=== PATIENT | male | born 1935 | race Caucasian/White ===

== ENCOUNTER 2018-08-26 17:26 | Inpatient (IN) ==
[2018-08-26] MEDS ORDERED: ACETAMINOPHEN 325 MG TAB PO PRN (20:44)
[2018-08-26] MEDS ORDERED: NITROGLYCERIN SL 0.4 MG/TAB TAB SL PRN (20:44)
[2018-08-26] MEDS ORDERED: ONDANSETRON INJ 2 MG/ML 2 ML VIAL IV PRN (20:44)
[2018-08-26] MEDS ORDERED: DOCUSATE SODIUM/SENNA 50/8.6MG TAB PO PRN (20:46)
--- NOTE | 2018-08-26 21:13 | XRay Report ---
XR chest 1V portable CLINICAL HISTORY: Preoperative evaluation. COMPARISON STUDY: No previous studies for comparison. FINDINGS: Lung volumes are normal. There is no pneumothorax or pleural effusion. There is no consolid ation or evidence for pulmonary edema. Cardiac size is normal. Mediastinal contours are normal. Incid ental note is made of degenerative changes of both shoulders. IMPRESSION: No acute cardiopulmonary findings. Electronically signed by: Naveed Buitrago M.D. 08/26/2018 9:11 PM
[2018-08-26] MEDS: AMIODARONE 200 MG TAB PO SCH (22:01)
[2018-08-26] MEDS: ATORVASTATIN 10 MG TAB PO SCH (22:01)
[2018-08-26] MEDS: CALCIUM CARBONATE 500 MG CHEWABLE TAB PO SCH (22:01)
[2018-08-26] MEDS: FUROSEMIDE 40 MG TAB PO SCH (22:01)
[2018-08-26] MEDS: POLYETHYLENE (MIRALAX) 17 GM PACK PO SCH (22:02)
[2018-08-26] MEDS: METOPROLOL SUCC 25MG EXT REL TAB PO SCH (22:02)
--- NOTE | 2018-08-26 23:35 | History and Physical Report ---
DATE OF ADMISSION: 08/26/2018 CHIEF COMPLAINT: Nonsustained V-tach, plan for ICD. HISTORY OF PRESENT ILLNESS: This is an 82-year-old male with past medical history significant for primary papillary thyroid cancer, status post thyroidectomy, postsurgical hypothyroidism, hyperlipidemia, chronic diastolic heart failure, systolic congestive heart failure, hypertension, chronic kidney disease stage III, malignant neoplasm of colon, status post laparoscopic colectomy with anastomosis, Hx of V tach post op in 2013, Hx of PAF not on anticoagulation,admitted recently to the [facility] with lightheadedness and arrhythmia and found to be in SVTs, heart rate greater than 170, narrow complex, with reentrant tachycardia and then wide complex tachycardia. In the hospital, she had an episode of lightheadedness. Amiodarone drip was started. At that time, he was also placed on Toprol-XL and diuretics because his EF was down to 30%. Tachycardia improved. and the patient was planned for ICD and was transferred here for ICD placement. Patient also recently had a gout flare, and along with gout flare, he developed rash for which he was treated with prednisone. Currently rash has improved. Patient is resting comfortably. Denies any headaches, no blurred vision, no earache, no runny nose, no sore throat or difficulty swallowing. No chest pain, no shortness of breath, no palpitations, no cough, no nausea, no abdominal pain. Normal bowel and bladder movements. No blood in the stools or black stools. ALLERGIES: FELODIPINE. PAST MEDICAL HISTORY: As mentioned above. PAST SURGICAL HISTORY: Colonoscopy, left heart catheterization, upper endoscopy, inguinal hernia repair, umbilical hernia repair, rhinoplasty, laparoscopic colectomy partial with anastomosis, partial nephrectomy, complete thyroidectomy, total hip replacement and prosthesis. MEDICATIONS: Currently patient is on amiodarone 200 mg p.o. t.i.d., Flonase 2 sprays into nostrils daily, Lasix 40 mg p.o. b.i.d., Toprol-XL 25 mg p.o. b.i.d., Senokot-S 2 tablets daily p.r.n., allopurinol 100 mg p.o. daily, calcium carbonate 750 mg q.i.d., Zantac 150 mg p.o. daily, Lipitor 10 mg p.o. daily, MiraLax 17 g p.o. daily, Synthroid 175 mcg p.o. daily, Flomax 0.4 mg p.o. daily, Tylenol 650 mg p.o. q.4 h. p.r.n., vitamin D50 of 1000 units capsule weekly. FAMILY HISTORY: Significant for mother who had CHF, brother has prostate cancer. Sister has Parkinson's, colon cancer, valvular heart disease. SOCIAL HISTORY: . No smoking, no alcohol, no drug use. REVIEW OF SYSTEMS: As per HPI, rest of the review of systems negative. PHYSICAL EXAMINATION: GENERAL: Patient is of moderate build, not in acute distress. VITAL SIGNS: Temperature 36.8, pulse 69, respiratory rate 16, blood pressure 176/97, oxygen saturation 96% on room air. HEENT: No pallor, no icterus. Pupils equal, round, and reactive to light. NECK: No JVD, no neck masses, no carotid bruits. CARDIOVASCULAR SYSTEM: S1 and S2 heard, regular rate and rhythm, no murmur, no gallop. RESPIRATORY SYSTEM: Clear to auscultation bilaterally. No wheezing, no crackles. GASTROINTESTINAL: Abdomen is soft, bowel sounds present, nontender, no distention. CENTRAL NERVOUS SYSTEM: Cranial nerves II through XII grossly intact. Nonfocal. EXTREMITIES: No edema, no erythema. LABORATORY DATA: Labs done at [place] show WBC of 8.8, hemoglobin 13.3, hematocrit 39.5, platelets 208. BUN 33, creatinine 2.1, sodium 140, potassium 3.9, chloride 95, bicarbonate 31, glucose 101, calcium 9.2. Alkaline phosphatase is 102, ALT 27, AST 27, bilirubin 0.6, total bilirubin less than 0.2. ASSESSMENT AND PLAN: This is an 82-year-old male who was transferred from [facility] for ICD placement. 1. Ventricular tachycardia, nonsustained supraventricular tachycardia. Was started on amiodarone. Currently seems to be under control. Patient was symptomatic with the lightheadedness. Plan is for ICD placement in the a.m. by cardiology EP services, consult cardiology EP. Will keep him n.p.o. after midnight. Continue his amiodarone 200 mg t.i.d. and Toprol-XL 25 mg p.o. b.i.d. and monitor on the tele floor. 2. Chronic systolic congestive heart failure, now ejection fraction of 30%, on Lasix 40 mg b.i.d., which we will continue. Monitor for volume overload. Continue Toprol-XL. 3. Questionable paroxysmal atrial fibrillation, not on anticoagulation. Cardiology to plan to start on anticoagulation if a fib is confirmed. 4. Hypertension. Continue his Toprol-XL and diuretics and monitor his blood pressure. 5. History of papillary thyroid cancer, status post total thyroidectomy, postop hypothyroidism, on levothyroxine. Continue his current home dose. 6. Gastroesophageal reflux disease. Continue Pepcid. 7. Hyperlipidemia. Continue statin. 8. History of colon cancer, status post colectomy. 9. Chronic kidney disease stage III. Creatinine seems to be around 2. Will follow the labs. 10. Deep venous thrombosis prophylaxis. Will place on sequential compression devices. 11. Disposition: Close monitor in tele floor. PT/OT prior to discharge. rehab services aide to help with discharge planning. Level 1 full code. MTDD
[2018-08-27 05:43] LABS: Basophils # (auto) 0.02 K/uL (0-0.2); Basophils % (auto) 0.3 %; Eosinophils # (auto) 0.57 K/uL (0-0.5); Eosinophils % (auto) 8.7 %; Hematocrit (blood only) 36.9 % (42-52); Immature Granulocytes % (auto) 1.5 %; Lymphocytes # (auto) 0.83 K/uL (1.2-3.4); Lymphocytes % (auto) 12.7 %; Mean Corpuscular Hgb Conc 32.5 g/dL (32-36); Mean Corpuscular Volume 94.6 fL (80-100); Mean Platelet Volume 9.9 fL (7.4-10.4); Monocytes % (auto) 10.7 %; Neutrophils % (auto) 66.1 %; Platelet Count 176 K/uL (130-400); RDW Coefficient of Variation 14.3 % (11.5-14.5); RDW Standard Deviation 48.9 fL (36.4-46.3); White Blood Count 6.52 K/uL (4.8-10.8)
[2018-08-27] MEDS ORDERED: CEFAZOLIN 2000MG 2,000 MG/15 ML SYR IV SCH (06:00)
[2018-08-27 06:04] LABS: BUN Creatinine Ratio 15.8 (10-20); Calcium 8.4 mg/dl (8.5-10.1); Creatinine Clr Calc Pharmacy 35.9 ml/min; Est GFR (African American) 37.7; Est GFR (Non-African American) 32.6; Magnesium 2.3 mg/dl (1.8-2.4); Potassium 3.2 mmol/L (3.5-5.1)
[2018-08-27] MEDS: LEVOTHYROXINE SODIUM 175 MCG TABLET PO SCH (06:04)
[2018-08-27] MEDS ORDERED: POTASSIUM CHLORIDE 20 MEQ TABCR PO STA (06:54)
[2018-08-27] MEDS ORDERED: POTASSIUM CHLORIDE 20 MEQ TABCR PO ONE (07:15)
[2018-08-27] MEDS: FAMOTIDINE 20 MG TAB PO SCH (08:43)
[2018-08-27] MEDS: FLUTICASONE PROPIONATE NA SPR 16 GM BTL SCH (08:43)
[2018-08-27] MEDS: ASPIRIN 81 MG ECTAB PO SCH (08:43)
[2018-08-27] MEDS: FUROSEMIDE 40 MG TAB PO SCH ×2 (08:43→17:37)
[2018-08-27] MEDS: TAMSULOSIN HCL 0.4 MG CAP PO SCH (08:43)
[2018-08-27] MEDS: CALCIUM CARBONATE 500 MG CHEWABLE TAB PO SCH ×2 (08:44→20:29)
[2018-08-27] MEDS: AMIODARONE 200 MG TAB PO SCH ×3 (08:45→20:28)
[2018-08-27] MEDS: METOPROLOL SUCC 25MG EXT REL TAB PO SCH ×2 (08:46→20:28)
--- NOTE | 2018-08-27 09:00 | Pre Anesthesia Assessment ---
Date of Service August 27, 2018 Pre Sedation Assessment Vital Signs Temp Pulse Resp BP BP Pulse Ox 08/27/18 07:45 37 C 63 16 132/74 93 08/27/18 02:38 37.0 C 70 18 152/84 H 95 08/26/18 23:18 36.5 C 70 19 120/59 L 93 08/26/18 20:04 36.8 C 69 16 176/97 H 96 Cardiovascular RRR, no murmur, no edema + bradycardic Respiratory normal respiratory effort, lungs clear to auscultation Pre-Sedation Airway Assessment Smoking Status: Never smoker Hx Sleep Apnea: No Hx Difficult Intubation: No Short, Thick Neck: No Thyromental Distance: < 3.5 Finger Breadths Oral Cavity: + WNL Mallampati Class: II ASA: ASA3 Procedure Planning Contraindications for Sedation: none Current Medications Reviewed: Yes Notes The planned sedation has been discussed with the patient. Informed Consent was obtained. I have identified the patient, determined the appropriateness of sedation and have assessed the patient immediately prior to the procedure. All medicine(s) and interventions are by my order.
--- NOTE | 2018-08-27 09:00 | History & Physical Bridge Note ---
Date of Service August 27, 2018 History & Physical Bridge Note I have examined the patient, reviewed the History & Physical and in the interval since the performance of the History & Physical I have noted the following changes of clinical significance: no changes noted
[2018-08-27] MEDS ORDERED: BUPIVACAINE 0.25% 30 ML VIAL ONE (09:15)
[2018-08-27] MEDS ORDERED: LIDOCAINE HCL 1% 20 ML VIAL ONE (09:15)
[2018-08-27] MEDS ORDERED: BACITRACIN INJ 50,000 UNIT VIAL ONE (09:15)
[2018-08-27] MEDS ORDERED: CEFAZOLIN 250 MG/ML 1 GM VIAL ONE (09:35)
[2018-08-27] MEDS ORDERED: MIDAZOLAM HCL 5 MG/ML 1 ML VIAL ONE (09:35)
[2018-08-27] MEDS ORDERED: fentaNYL citrate 100 MCG/2 ML VIAL ONE (09:35)
[2018-08-27] MEDS ORDERED: WATER, STERILE FOR INJ 10 ML VIAL ONE (09:35)
--- NOTE | 2018-08-27 09:56 | Hospitalist Progress Note ---
Date of Service August 27, 2018 Assessment & Plan (1) Non-sustained ventricular tachycardia: This is a 82yo M with a PMH of non-sustained ventricular tachycardia, systolic heart failure 2/2 non-ischemic cardiomyopathy, HTN, HLD, CKD III and other medical problems listed below who was transferrred from [facility] for ICD placement by Dr. Blas. -Underwent ICD dual-chamber device placement today by Dr. Blas -Continue PO amiodarone -Monitor on telemetry - was in sinus rhythm with PVCs overnight (2) Acute systolic heart failure: (3) Non-ischemic cardiomyopathy: EF of 30% on 08/22/17 echo, assumed to be non-ischemic CM due to normal cardiac cath in 2017 -Appears euvolemic on exam -Continue Toprol, Lasix (4) HTN (hypertension): Normotensive. Continue Toprol, Lasix (5) CKD (chronic kidney disease), stage III: Cr of 1.9, GFR of 32.6 today, at baseline (6) HLD (hyperlipidemia): Continue statin (7) Acquired hypothyroidism: H/o papillary thyroid carcinoma s/p thyroidectomy -Continue levothyroxine DVT Ppx: SCDs Code status: FULL PCP: Mariella Dispo: Admitted to telemetry. Plan to return home once medically stable. Patient seen in collaboration with Dr. Renteria. Please see addendum. Supervising Physician Co-Signing Physician Notes Admitted for ICD placement which was performed earlier today by Dr. Blas. Doing well after the procedure. Coughing a bit- has chronic cough and recent cold symptoms. EXAM General- no distress Neck- + JVD Lungs- few rhonchi Heart- RRR, no gallop appreciated Thorax- ICD site without hematoma Abd- + BS, soft, nontender Extr- no edema A/P: cardiomyopathy, ventricular tachycardia s/p ICD other problems as outlined by JEANINE Baca. Subjective Patient seen and examined. Feeling well today. Denies dizziness, chest pain, palpitations, SOB or LE edema. +Dry cough, persistent, worse when lying down. NPO overnight for ICD placement today by Dr. Blas. Telemetry reviewed with sinus rhythm with PVCs with HR is 60s overnight. Physical Exam 2 Vital Signs (Past 24 Hours): Last Vital Signs Temp 37 C 08/27/18 07:45 Pulse 63 08/27/18 07:45 Resp 16 08/27/18 07:45 BP 132/74 08/27/18 07:45 Pulse Ox 93 08/27/18 07:45 Physical Exam: General Appearance: WD/WN, no apparent distress, resting comfortably, family at bedside Head: normocephalic, atraumatic Eyes: normal inspection, PERRL, EOMI ENT: hearing grossly normal, pharynx normal (moist mucous membranes) Neck: supple, no JVD, no adenopathy Respiratory/Chest: lungs clear to auscultation. No wheezes, rales or rhonci. No respiratory distress or accessory muscle use Cardiovascular: bradycardic, regular rhythm, no murmur appreciated, normal peripheral pulses Abdomen/GI: normal bowel sounds, soft, non-tender to palpation Extremities/Musculoskelatal: normal inspection, no calf tenderness, normal capillary refill, no pedal edema Neurologic/Psych: alert, normal mood/affect, oriented x 3 Skin: normal color, warm/dry Results & Data Laboratory Results Short CBC 08/27/18 Range/Units 05:16 WBC 6.52 (4.8-10.8) K/uL Hgb 12.0 L (14.0-18.0) g/dL Hct 36.9 L (42-52) % Plt Count 176 (130-400) K/uL BMP 08/27/18 05:16 Sodium 138 Potassium 3.2 L Chloride 99 Carbon Dioxide 35 H BUN 30 H Creatinine 1.90 H Glucose 92 Calcium 8.4 L Diagnostic Findings CXR (08/26/17): IMPRESSION: No acute cardiopulmonary findings. ECG Rhythm: sinus rhythm Findings: + 1st degree AV block
--- NOTE | 2018-08-27 10:51 | Post Anesthesia Assessment ---
Date of Service August 27, 2018 Post Sedation Assessment Vital Signs Temp Pulse Resp BP BP Pulse Ox 08/27/18 07:45 37 C 63 16 132/74 93 08/27/18 02:38 37.0 C 70 18 152/84 H 95 08/26/18 23:18 36.5 C 70 19 120/59 L 93 08/26/18 20:04 36.8 C 69 16 176/97 H 96 Recovery Score Activity: Moves 4 extremities Respiration: Deep Breath/Cough Circulation: +/-20% PreAnes Value Consciousness: Fully Awake Oxygen Saturation: > 92% On Room Air Discharge Sedation Level of Care: Fast Track Phase II Post Sedation Plan On clinical assessment, the patient appears to have tolerated the sedation without complications. Patient is recovering as anticipated. Patient will continue to be monitored by nursing and may be discharged when sedation discharge criteria are met per below protocol. Upon Completions of procedure and additional 15 minutes continue every 5 minute vital signs and the P.A.R. score; then discharge to a Phase I or Fast Track to Phase II per the following guidelines: * Discharge Patient to appropriate Phase II area if PAR is 8 or greater or return to pre- procedure baseline. The post - procedure orders will be as directed. * If PAR score is less than 8 or not return to pre-procedure baseline then patient will follow Phase I monitoring till PAR is reached for Phase II. The Phase I may be done in procedure room or may call to secure a Phase I area. * If naloxone or flumazenil are used for reversal, hold in Phase I for continued monitoring from when last reversal dose was given for a minimum of 60 minutes or longer pending the nurse and/or physician discretion of patient condition before discharge to Phase II. Please call the Sedation Physician to re-evaluate and complete post-note for discharge to Phase II area. Do NOT discharge from procedure sedation or Phase 1 until post- sedation evaluation note is complete by procedure /sedation MD Sedation Discharge Instructions to be given to the patient at discharge to home.
[2018-08-27] MEDS ORDERED: OXYCODONE/ACETAMINOPHEN 5mg/325mg TAB PO PRN (10:52)
--- NOTE | 2018-08-27 10:52 | Operative Report ---
Post Operative Report Pre & Post Diagnosis pVT, NICM, Sinus bradycardia, RBBB, LAFB Operation Date: 08/27/18 11:30 <No data on this case meets the specified criteria> Procedure Operation Date: 08/27/18 11:30 Actual Procedures p ICD Insertion Dual - Courtney Blas DO peripheral venogram Surgeon Courtney Blas, [employer] Software Developer none Estimated Blood Loss 20 Findings Consistent with Post-Op Diagnosis Specimens none Description of Procedure see official report I attest to the content of the Intraoperative Record and any orders documented therein. Any exceptions are noted below.
--- NOTE | 2018-08-27 16:56 | Operative Report ---
DATE OF OPERATION: 08/27/2018 PREOPERATIVE DIAGNOSES: Sustained ventricular tachycardia, nonischemic cardiomyopathy, and trifascicular block (sinus bradycardia, left anterior fascicular block, and right bundle-branch block). POSTOPERATIVE DIAGNOSES: Sustained ventricular tachycardia, nonischemic cardiomyopathy, and trifascicular block (sinus bradycardia, left anterior fascicular block, and right bundle-branch block). PROCEDURE: Dual chamber rate responsive implantable cardiac defibrillator under fluoroscopic guidance along with peripheral venogram. SURGEON: Courtney Blas DO. PATHOLOGY SECRETARY: None. ANESTHESIA: Monitored conscious sedation administered by Jase Hannon under my supervision. Start time 9:53, end time 10:47. A total of 4 mg of Versed, 100 mcg fentanyl. INTRAVENOUS FLUIDS: 25 mL. ANTIBIOTICS: 2 g of Ancef. ADDITIONAL MEDICINES: 10 mL of contrast. COMPLICATIONS: None. CONDITION: Stable. URINE OUTPUT: Not applicable. SPECIMENS: None. FINDINGS: See below. DRAINS: None. INDICATIONS: This is an 82-year-old gentleman who has a past medical history for trifascicular block and syncope in 2016 as well as a history of VT postoperatively in 2013 where he was started on amiodarone. His ejection fraction and cardiac catheterization were all normal in 05/2017 at the time of syncope, so amiodarone was stopped. He also carries a history of hypertension, hyperlipidemia, chronic kidney disease, and possible atrial fibrillation, although he is not on any anticoagulation, so I am not sure. He was admitted to [facility] due to dizziness and feeling like he might pass out. On admission, he did have some nonsustained VT. He was monitored in the hospital, had an echocardiogram that revealed nonischemic cardiomyopathy with an ejection fraction of 30%. Over the course of hospitalization, he then had sustained ventricular tachycardia at a rate of 185 beats per minute. He was started on amiodarone and has not had any more episodes. I reviewed the case with my partners in [facility], and I gave the patient his options of conservative treatment with just amiodarone versus more aggressive treatment with a defibrillator and amiodarone. Patient opted for the latter, so then he was transferred to [facility] to undergo dual chamber defibrillator. CONSENT: Consent was obtained prior to the patient going into electrophysiology lab. The patient was informed of the risks, benefits, and alternatives of this procedure. Risks include but are not limited to sudden cardiac , cardiac arrhythmias, cerebrovascular accident, myocardial infarction, injury to the blood vessels, chamber of the heart and lungs, bleeding, and infection. Patient understood these risks and agreed to the procedure as planned. Informed consent was obtained. DESCRIPTION OF THE PROCEDURE: Patient was brought into electrophysiology lab in fasting state. He was connected to continuous cardiac monitoring. A timeout was performed to ensure patient identity and procedure correctly. Patient was prepped and draped over the left infraclavicular space in normal surgical standard fashion. Monitored conscious sedation was given throughout the procedure for patient's comfort level. [place] precautions maintained throughout the procedure. 10 mL of 1% lidocaine/bupivacaine mixture given in the left deltopectoral groove. Incision was made in the left deltopectoral groove. Blunt dissection was performed down to identify cephalic vein. The cephalic vein initially was not identified, so I did a peripheral venogram using 10 mL of IV contrast diluted in 10 mL of saline followed by 20 mL flush. This identified a nice axillary as well as a cephalic vein, but I then did further blunt dissection and found the cephalic vein. It was isolated using 0 silk ties, nicked with an 11 blade, and a guidewire was inserted without any resistance. An 8-Citizen [place] sheath was inserted over the guidewire without resistance. The guidewire and dilator removed. The right ventricular defibrillator lead was then advanced into right ventricle and positioned into right ventricular apex under fluoroscopic guidance. An 8-Citizen [place] sheath was inserted over the guidewire without any resistance. The dilator was removed, and a second guidewire was inserted through the 8-[place]izen [place] sheath to allow for retained venous access. The sheath was then removed, and a 9-1/2-Citizen [place] sheath was inserted over the 1 guidewire without any resistance. Guidewire and dilator removed, and then the right ventricular defibrillator lead was advanced into right ventricular apex under fluoroscopic guidance. There were adequate pacing and sensing thresholds. There was no diaphragmatic stimulation in high output pacing. The 9-1/2-Citizen [place] sheath was peeled away, and lead was fixated to pectoralis muscle using 0 silk suture. The 8-[place]izen [place] sheath was then inserted over the retained guidewire without any resistance. The guidewire and dilator removed. The right atrial pacing lead was then advanced into right atrium and positioned into right atrial appendage under fluoroscopic guidance. There were adequate pacing and sensing thresholds and no diaphragmatic stimulation with high output pacing. The 8-[place] sheath was peeled away, and lead was fixated to pectoralis muscle using 0 silk suture. A defibrillator pocket was created using blunt dissection over the pectoralis muscle within the pectoralis fascia. The pocket was flushed with copious amounts of bacitracin saline, washed, inspected for hemostasis. The defibrillator was then attached to the leads making sure that the pins were in appropriate position, passed the set screws, and set screws were all tightened. Defibrillator was then placed in the pocket making sure that the leads were lying flat beneath the device. The incision was then closed in 3-layered fashion with 2-0 Vicryl interrupted suture followed by 3-0 Vicryl interrupted suture followed by 4-0 Monocryl running stitch, and Dermabond was applied. EQUIPMENTS: 1. The generator is a [employer] MRI XT DR Aguilar, [id number], serial #[id number]. 2. Right atrial lead: Medtronic 5076-52 cm, serial #[id number]. 3. Right ventricular lead: Medtronic 6935M-62 cm, serial #[id number]. INTRAOPERATIVE TESTIN. Right atrial lead: P waves 5.4 mV, impedance 504 ohms, threshold 0.5 V at 0.9 milliamps. 2. Right ventricular lead: R waves 14.9 mV, impedance 563 ohms, threshold 0.3 V at 0.4 milliamps. FINAL MEASUREMENTS THROUGH DEVICE: 1. Right atrial lead: P waves 3.5 mV, impedance 437 ohms, threshold 0.5 V at 0.4 msec. 2. Right ventricular lead: R waves 14.3 mV, impedance 513 ohms, threshold 0.5 V at 0.4 msec. 3. RV coils 37 ohms. FINAL PARAMETERS: MVP-R 60/130. Right atrial and left ventricular amplitude 3.5 V, pulse width 0.4 msec, sensitivity 0.3 mV. VT monitor zone 140 beats per minute, 32 detection intervals, VT zone at 167 beats per minute, 16 detection intervals, and a VF zone at 200 beats per minute for 30/40 detection intervals. IMPRESSION: Successful implantation of a dual chamber rate responsive implantable cardiac defibrillator under fluoroscopic guidance and also peripheral venogram secondary to sustained ventricular tachycardia, nonischemic cardiomyopathy, and trifascicular block. PLAN: Monitor patient overnight, 12-lead ECG, chest x-ray. He is not allowed to lift the left elbow over left shoulder for 1 month. He cannot lift more than 10 pounds with the left arm for 2 weeks. He can shower in 2 days, let water run over the incision, do not scrub it. He should continue amiodarone 200 mg 3 times a day for 2 weeks and then go down to 200 mg daily. He should continue his other home medications. He should follow up in our [place] office for device and wound check in 1 week's time, and he will follow up with me in my [place] office in 1 month. I attest to the content of the Intraoperative Record and any orders documented therein. Any exception s are noted below.
[2018-08-27] MEDS: ATORVASTATIN 10 MG TAB PO SCH (20:28)
[2018-08-27] MEDS: POLYETHYLENE (MIRALAX) 17 GM PACK PO SCH (20:29)
[2018-08-28] MEDS: LEVOTHYROXINE SODIUM 175 MCG TABLET PO SCH (05:38)
[2018-08-28 05:50] LABS: Hemoglobin 12.9 g/dL (14.0-18.0); Mean Corpuscular Hgb Conc 32.3 g/dL (32-36); Mean Corpuscular Volume 95.5 fL (80-100); Platelet Count 201 K/uL (130-400); RDW Coefficient of Variation 14.1 % (11.5-14.5); RDW Standard Deviation 48.7 fL (36.4-46.3); Red Blood Count 4.19 M/uL (4.7-6.1)
[2018-08-28 06:27] LABS: BUN Creatinine Ratio 14.2 (10-20); Calcium 8.5 mg/dl (8.5-10.1); Creatinine Clr Calc Pharmacy 32.6 ml/min; Est GFR (African American) 33.6
--- NOTE | 2018-08-28 06:45 | XRay Report ---
XR chest 2V routine CLINICAL HISTORY: post implant COMPARISON STUDY: 08/26/2018 FINDINGS: There is been interval insertion of a left subclavian dual-chamber central venous pacemaker . Electrodes orientation appears unremarkable. The heart is the upper limits of normal in size. There is no failure. There is no focal pulmonary consolidation. There are no pleural effusions. There is n o pneumothorax.[ IMPRESSION: No evidence of pneumothorax status post placement of a left subclavian dual-chamber centr al venous pacemaker. Electronically signed by: Avelino Blood M.D. 08/28/2018 6:43 AM
[2018-08-28] MEDS: AMIODARONE 200 MG TAB PO SCH (08:19)
[2018-08-28] MEDS: FLUTICASONE PROPIONATE NA SPR 16 GM BTL SCH (08:20)
[2018-08-28] MEDS: TAMSULOSIN HCL 0.4 MG CAP PO SCH (08:20)
[2018-08-28] MEDS: FUROSEMIDE 40 MG TAB PO SCH (08:21)
[2018-08-28] MEDS: FAMOTIDINE 20 MG TAB PO SCH (08:21)
[2018-08-28] MEDS: METOPROLOL SUCC 25MG EXT REL TAB PO SCH (08:22)
--- NOTE | 2018-08-28 08:39 | Cardiology Progress Note ---
Date of Service August 28, 2018 Subjective pt s/p dual chamber ICD; doing well denies any pain. brief NSVT. no chest pain , sob or palpitations Physical Exam 2 Vital Signs (Past 24 Hours): Last Vital Signs Temp 37.0 C 08/28/18 07:47 Pulse 70 08/28/18 07:47 Resp 26 H 08/28/18 07:47 BP 137/74 08/28/18 07:47 Pulse Ox 75 L 08/28/18 07:47 Physical Exam: aaox3, NAD NC/AT, EOMI Supple No JVD Nrl S1/S2, No murmur CTA b/l no w/r/r soft nt/nd no LE edema b/l skin intact no focal deficits left pectoral incision intact, no hematoma mild ecchymosis Results & Data Diagnostic Findings ICD Interrogation Today: normal function cxr: no PTX leads in place
[2018-08-28] MEDS: CALCIUM CARBONATE 500 MG CHEWABLE TAB PO SCH (08:48)
[2018-08-28] MEDS: ASPIRIN 81 MG ECTAB PO SCH (08:49)
--- NOTE | 2018-08-28 10:33 | Hospitalist Progress Note ---
Date of Service August 28, 2018 Assessment & Plan (1) Non-sustained ventricular tachycardia: This is a 82yo M with a PMH of non-sustained ventricular tachycardia, systolic heart failure 2/2 non-ischemic cardiomyopathy, HTN, HLD, CKD III and other medical problems listed below who was transferrred from [facility] for ICD placement by Dr. Blas. -Underwent ICD dual-chamber device placement on 08/27/[address] Blas -Continue PO amiodarone -Monitor on telemetry - was in sinus rhythm with PAcs and PVCs overnight (2) Acute systolic heart failure: (3) Non-ischemic cardiomyopathy: EF of 30% on 08/22/17 echo, assumed to be non-ischemic CM due to normal cardiac cath in 2017 -Appears euvolemic on exam -Continue Toprol, Lasix (4) HTN (hypertension): Normotensive. Continue Toprol, Lasix (5) CKD (chronic kidney disease), stage III: Cr of 2, GFR of 29 today, at low end baseline (6) HLD (hyperlipidemia): Continue statin (7) Acquired hypothyroidism: H/o papillary thyroid carcinoma s/p thyroidectomy -Continue levothyroxine DVT Ppx: SCDs Code status: FULL PCP: Mariella Dispo: Admitted to telemetry. Plan to return home once medically stable. Patient seen in collaboration with Dr. Renteria. Please see addendum. Supervising Physician Co-Signing Physician Notes Pt seen in his room. Care coordinated with Britta Baca PA-C. Admitted for ICD placement which was performed yesterday by Dr. Blas. Doing well . EXAM General- no distress Neck- + JVD Lungs- few rhonchi Heart- RRR, no gallop appreciated Thorax- ICD site without hematoma Abd- + BS, soft, nontender Extr- no edema A/P: Cardiomyopathy, ventricular tachycardia. s/p ICD Other problems as outlined by JEANINE Baca. Discharge today. Subjective Patient seen and examined. Feels well today. Denies dizziness, chest pain, palpitations, SOB or LE edema. Still has chronic cough. Is POD#1 s/p Dual chamber ICD placement by Dr. Blas. Telemetry reviewed with sinus rhythm with PACs and PVCs, with HR is 60s-70s overnight. Physical Exam 2 Vital Signs (Past 24 Hours): Last Vital Signs Temp 36.8 C 08/28/18 08:43 Pulse 73 08/28/18 08:43 Resp 16 08/28/18 08:43 BP 144/83 H 08/28/18 08:43 Pulse Ox 93 08/28/18 08:43 Physical Exam: General Appearance: WD/WN, no apparent distress, resting comfortably, coughing intermittently Head: normocephalic, atraumatic Eyes: normal inspection, PERRL, EOMI ENT: hearing grossly normal, pharynx normal (moist mucous membranes) Neck: supple, no JVD, no adenopathy Respiratory/Chest: lungs clear to auscultation. No wheezes, rales or rhonci. No respiratory distress or accessory muscle use Cardiovascular: regular rate, regular rhythm, no murmur appreciated, normal peripheral pulses Abdomen/GI: normal bowel sounds, soft, non-tender to palpation Extremities/Musculoskelatal: normal inspection, no calf tenderness, normal capillary refill, no pedal edema Neurologic/Psych: alert, normal mood/affect, oriented x 3 Skin: normal color, warm/dry. Left chest wall with incision clean, dry, intact. Mild surrounding ecchymosis Results & Data Laboratory Results Short CBC 08/28/18 Range/Units 05:08 WBC 9.60 (4.8-10.8) K/uL Hgb 12.9 L (14.0-18.0) g/dL Hct 40.0 L (42-52) % Plt Count 201 (130-400) K/uL BMP 08/27/18 08/28/18 20:42 05:08 Sodium 136 Potassium 4.2 D 4.0 Chloride 98 Carbon Dioxide 33 H BUN 30 H Creatinine 2.09 H Glucose 91 Calcium 8.5 Diagnostic Findings CXR: IMPRESSION: No evidence of pneumothorax status post placement of a left subclavian dual-chamber central venous pacemaker.
--- NOTE | 2018-08-28 12:37 | Discharge Summary ---
Date of Service August 28, 2018 Admission HPI Per Admitting Provider HISTORY OF PRESENT ILLNESS: This is an 82-year-old male with past medical history significant for primary papillary thyroid cancer, status post thyroidectomy, postsurgical hypothyroidism, hyperlipidemia, chronic diastolic heart failure, systolic congestive heart failure, hypertension, chronic kidney disease stage III, malignant neoplasm of colon, status post laparoscopic colectomy with anastomosis, Hx of V tach post op in 2013, Hx of PAF not on anticoagulation,admitted recently to the [facility] with lightheadedness and arrhythmia and found to be in SVTs, heart rate greater than 170, narrow complex, with reentrant tachycardia and then wide complex tachycardia. In the hospital, she had an episode of lightheadedness. Amiodarone drip was started. At that time, he was also placed on Toprol-XL and diuretics because his EF was down to 30%. Tachycardia improved. and the patient was planned for ICD and was transferred here for ICD placement. Patient also recently had a gout flare, and along with gout flare, he developed rash for which he was treated with prednisone. Currently rash has improved. Patient is resting comfortably. Denies any headaches, no blurred vision, no earache, no runny nose, no sore throat or difficulty swallowing. No chest pain, no shortness of breath, no palpitations, no cough, no nausea, no abdominal pain. Normal bowel and bladder movements. No blood in the stools or black stools. ALLERGIES: FELODIPINE. PAST MEDICAL HISTORY: As mentioned above. PAST SURGICAL HISTORY: Colonoscopy, left heart catheterization, upper endoscopy, inguinal hernia repair, umbilical hernia repair, rhinoplasty, laparoscopic colectomy partial with anastomosis, partial nephrectomy, complete thyroidectomy, total hip replacement and prosthesis. MEDICATIONS: Currently patient is on amiodarone 200 mg p.o. t.i.d., Flonase 2 sprays into nostrils daily, Lasix 40 mg p.o. b.i.d., Toprol-XL 25 mg p.o. b.i.d., Senokot-S 2 tablets daily p.r.n., allopurinol 100 mg p.o. daily, calcium carbonate 750 mg q.i.d., Zantac 150 mg p.o. daily, Lipitor 10 mg p.o. daily, MiraLax 17 g p.o. daily, Synthroid 175 mcg p.o. daily, Flomax 0.4 mg p.o. daily, Tylenol 650 mg p.o. q.4 h. p.r.n., vitamin D50 of 1000 units capsule weekly. FAMILY HISTORY: Significant for mother who had CHF, brother has prostate cancer. Sister has Parkinson's, colon cancer, valvular heart disease. SOCIAL HISTORY: . No smoking, no alcohol, no drug use. REVIEW OF SYSTEMS: As per HPI, rest of the review of systems negative. Admission Exam Per Admitting Provider PHYSICAL EXAMINATION: GENERAL: Patient is of moderate build, not in acute distress. VITAL SIGNS: Temperature 36.8, pulse 69, respiratory rate 16, blood pressure 176/97, oxygen saturation 96% on room air. HEENT: No pallor, no icterus. Pupils equal, round, and reactive to light. NECK: No JVD, no neck masses, no carotid bruits. CARDIOVASCULAR SYSTEM: S1 and S2 heard, regular rate and rhythm, no murmur, no gallop. RESPIRATORY SYSTEM: Clear to auscultation bilaterally. No wheezing, no crackles. GASTROINTESTINAL: Abdomen is soft, bowel sounds present, nontender, no distention. CENTRAL NERVOUS SYSTEM: Cranial nerves II through XII grossly intact. Nonfocal. EXTREMITIES: No edema, no erythema. Principal Diagnosis Non-sustained Ventricular Tachycardia, cardiomyopathy, s/p dual chamber ICD placement Discharge Exam General Appearance: WD/WN, no apparent distress, resting comfortably, coughing intermittently Head: normocephalic, atraumatic Eyes: normal inspection, PERRL, EOMI ENT: hearing grossly normal, pharynx normal (moist mucous membranes) Neck: supple, no JVD, no adenopathy Respiratory/Chest: lungs clear to auscultation. No wheezes, rales or rhonci. No respiratory distress or accessory muscle use Cardiovascular: regular rate, regular rhythm, no murmur appreciated, normal peripheral pulses Abdomen/GI: normal bowel sounds, soft, non-tender to palpation Extremities/Musculoskelatal: normal inspection, no calf tenderness, normal capillary refill, no pedal edema Neurologic/Psych: alert, normal mood/affect, oriented x 3 Skin: normal color, warm/dry. Left chest wall with incision clean, dry, intact. Mild surrounding ecchymosis Discharge Data Allergies Allergy/AdvReac Type Severity Reaction Status Date / Time felodipine Allergy Unknown FEET Verified 12/22/15 06:22 SWELLING sulindac Allergy Hives Verified 08/26/18 20:19 Consultations 08/26/18 20:44 Consult Case Management - Discharge Planning Routine 08/27/18 07:00 Consult Cardiology Routine Procedures Performed Operation Date: 08/27/18 11:30 Actual Procedures p ICD Insertion Single or Dual - Courtney Blas DO Ordered Studies 08/27/18 07:00 EP Lab Images for PACS ONCE Hospital Course (1) Non-sustained ventricular tachycardia: This is a 82yo M with a PMH of non-sustained ventricular tachycardia, systolic heart failure 2/2 non-ischemic cardiomyopathy, HTN, HLD, CKD III and other medical problems listed below who was transferred from [facility] for ICD placement by Dr. Blas. Initially presented to [facility] with lightheadedness and was found to have non-sustained ventricular tachycardia. Echo performed revealed decreased EF of 30% on 08/22/17 echo, assumed to be non-ischemic CM due to normal cardiac cath in 2017. Was started on Amiodarone, Topril and Lasix. Was transferred to [facility] for dual chamber ICD device placement, which was perfomed by Dr. Blas on 08/27/17. Pacemaker interrogation today was within normal limits. Patient feels well today, denying lightheadedness, chest pain, palpitations or SOB. Hemodynamically stable and ready for discharge home, per Dr. Blas. Kidney function is close to baseline with Cr of 2, GFR of 29 today. Prescriptions provided for the following new medications: Toprol 25 mg BID, Lasix 40mg BID, Potassium chloride 20mEq daily, Amiodarone 200mg TID x 14 days, followed by 200mg daily. (2) Acute systolic heart failure: (3) Non-ischemic cardiomyopathy: (4) HTN (hypertension): (5) CKD (chronic kidney disease), stage III: (6) HLD (hyperlipidemia): (7) Acquired hypothyroidism: Patient seen in collaboration with Dr. Renteria. Please see addendum. Total Time Total Time Spent Total Time Spent (In Minutes): 90 Discharge Plan Discharge Items Patient Disposition: Home - Self-Care Reason For Visit: SUSTAINED VTACH, CARDIOMYOPATHY Discharge Diagnosis: Paroxysmal V tach, cardiomyopathy, s/p dual chamber ICD placement Activity: As commented below Activity Comment: do not lift the left elbow over the left shoulder for 1 month Lifting: No more than 10 pounds Lifting Comment: do not lift more than 10 pounds with the left arm for 2 weeks Bathing Comment: can shower 08/29/2018 Non-emergency contact: Primary Care Provider and Band Straightener Call non-emergency contact if: you have any medication questions, your symptoms worsen, your pain is not controlled and you have a fever Follow-up/Referrals: Rambo Wolff [Primary Care Provider] - Diet: Heart Healthy Add Provider Instructions: You were admitted for non-sustained ventricular tachycardia and had a dual chamber ICD placed. Please continue taking your normal home medications as prescribed. Please take these new medications listed below. Prescriptions have been sent to your pharmacy. Amiodarone 200mg three times a day for 2 weeks, then decrease to 200mg daily Furosemide 40mg twice a day Potassium chloride 20mg daily Metoprolol succinate XL 25mg twice a day Senna-docusate 2 tabs daily as needed for constipation Follow up appointments: Please schedule a follow up with PCP Dr. Wolff within one week from discharge (with repeat labwork at the appointment to check potassium level). You will be scheduled for a device and wound check next week in the [facility] [place] device clinic and a follow up appointment with Dr. Bals in 1 month. Her office will call you. It was a pleasure taking care of you. You can reach the [facility] Hospitalist team at [facility] by calling [phone] if you have any questions or concerns. Take care of yourself. Britta Baca PA-C [facility] Hospitalist Prescriptions: New furosemide 40 mg Tablet 40 mg PO BID17 30 Days Qty: 60 RF: 5 amiodarone 200 mg Tablet 200 mg PO TID 14 Days Qty: 42 RF: 0 sennosides-docusate sodium [Senna with Docusate Sodium] 8.6-50 mg Tablet 2 tab PO HS PRN (Reason: constipation) 30 Days Qty: 60 RF: 5 metoprolol succinate 25 mg Tablet Extended Release 24 Hr 25 mg PO BID 30 Days Qty: 60 RF: 5 potassium chloride 20 mEq tablet extended release 20 meq PO DAILY 30 Days Qty: 30 RF: 0 amiodarone 200 mg tablet 200 mg PO DAILY Qty: 30 RF: 5 Continue fluticasone [Flonase Allergy Relief] 50 mcg/actuation Alcova,Suspension 2 spray INTRANASAL DAILY RF: 0 aspirin 81 mg Tablet,Delayed Release (Dr/Ec) 81 mg PO DAILY RF: 0 levothyroxine 175 mcg tablet 175 mcg PO DAILY RF: 0 atorvastatin 10 mg tablet 10 mg PO HS RF: 0 tamsulosin 0.4 mg capsule 0.4 mg PO DAILY RF: 0 ergocalciferol (vitamin D2) 50,000 unit capsule 50,000 unit PO WK RF: 0 polyethylene glycol 3350 [Miralax] 17 gram/dose Powder 17 g PO DAILY PRN (Reason: Constipation) RF: 0 acetaminophen 325 mg Tablet 650 mg PO QID PRN (Reason: pain or fever) RF: 0 ranitidine HCl 150 mg Tablet 150 mg PO DAILY RF: 0 calcium carbonate 320 mg calcium (750 mg) Tablet,Chewable 750 mg PO QID PRN (Reason: Dyspepsia) RF: 0 allopurinol 100 mg Tablet 100 mg PO DAILY RF: 0 Discontinued famotidine [Pepcid] 20 mg Tablet 20 mg PO DAILY RF: 0 Stand-Alone Forms: [facility] Discharge Orders: Discharge Order (Routine); Ordered 08/28/18 Ordered By: Britta Baca Admission Data Admit Date/Time: 08/26/18 19:52 Attending Provider: Jemal Renteria Admit Provider: Jemal Renteria Primary Care Provider: Rambo Wolff Other Providers: Courtney Blas Service: Telemetry Other Interventions: Discharge Summary Assessment (RN) Last Done: 08/28/18 12:46 DC Date/Time DO NOT enter until pt leaves facility: 08/28/18 15:18
== END 2018-08-28 15:18 | disposition home or self-care (01) | DRG 242 ==
LOC: 2E 19:52

== ENCOUNTER 2020-02-18 10:59 | Inpatient (IN) ==
--- NOTE | 2020-01-26 21:03 | PAT Medication Instructions ---
Medication Instructions Date of Service January 26, 2020 Home Medications aspirin 81 mg PO QAM atorvastatin 10 mg PO HS ergocalciferol (vitamin D2) 50,000 unit PO WK levothyroxine 175 mcg PO QAM polyethylene glycol 3350 [Miralax] 17 g PO DAILY PRN tamsulosin 0.4 mg PO QAM acetaminophen 650 mg PO QID PRN allopurinol 100 mg PO QAM calcium carbonate 750 mg PO QID PRN amiodarone 200 mg PO QAM metoprolol succinate 25 mg PO BID omeprazole 20 mg PO QAM potassium chloride 20 meq PO QAM torsemide 20 mg PO UD Other Notes If you have any questions please call us at [phone] or [phone] or [phone] or [phone]
--- NOTE | 2020-01-27 13:53 | PAT Medication Instructions ---
Medication Instructions Date of Service January 27, 2020 Home Medications aspirin 81 mg PO QAM atorvastatin 10 mg PO HS ergocalciferol (vitamin D2) 50,000 unit PO WK levothyroxine 175 mcg PO QAM polyethylene glycol 3350 [Miralax] 17 g PO DAILY PRN tamsulosin 0.4 mg PO QAM acetaminophen 650 mg PO QID PRN allopurinol 100 mg PO QAM calcium carbonate 750 mg PO QID PRN amiodarone 200 mg PO QAM metoprolol succinate 25 mg PO BID omeprazole 20 mg PO QAM potassium chloride 20 meq PO QAM torsemide 20 mg PO UD DO NOT take the morning of surgery polyethylene glycol 3350 [Miralax] 17 g PO DAILY PRN calcium carbonate 750 mg PO QID PRN potassium chloride 20 meq PO QAM torsemide 20 mg PO UD ergocalciferol (vitamin D2) 50,000 unit PO WK Take morning of surgery With a small sip of water, OTHERWISE NOTHING TO EAT OR DRINK AFTER MIDNIGHT: aspirin 81 mg PO QAM levothyroxine 175 mcg PO QAM tamsulosin 0.4 mg PO QAM acetaminophen 650 mg PO QID PRN (if needed, may be taken up to four hours before surgery) allopurinol 100 mg PO QAM amiodarone 200 mg PO QAM metoprolol succinate 25 mg PO BID omeprazole 20 mg PO QAM Take evening before surgery atorvastatin 10 mg PO HS polyethylene glycol 3350 [Miralax] 17 g PO DAILY PRN (if needed) acetaminophen 650 mg PO QID PRN (if needed) calcium carbonate 750 mg PO QID PRN (if needed) metoprolol succinate 25 mg PO BID torsemide 20 mg PO UD Other Notes If you have any questions please call us at [phone] or [phone] or [phone] or [phone]
--- NOTE | 2020-01-27 13:58 | Anesthesiology Consultation ---
Date of Service January 27, 2020 Assessment & Plan (1) Encounter for pre-operative examination: COVID Status: As of 01/26 assessment, patient denies travel to endemic area, known exposure/sick contacts, or symptoms of COVID19. Patient instructed to follow strict social distancing guidelines, wear a mask in public and avoid travel for 14 days prior to surgery. Preoperative COVID19 testing to be completed prior to surgery. Patient made aware to self-isolate as much as possible between COVID testing and surgery. Chart Review Chart Review: Acceptable Risk for Surgery (pending cardiology clearance, [place] 01/28) and Patient seen in Pre Admission Testing Teaching & Discussion Instructed NPO after midnight before surgery, except medications with 15 cc of water. Medication instructions provided according to the PAT guidelines. History Surgery Operation Date: 02/18/20 12:20 Proposed Procedures p Right Total Knee Arthroplasty - Sky Solis MD Height/Weight Height: 5 ft 9 in Weight: 113 kg Allergies Allergy/AdvReac Type Severity Reaction Status Date / Time felodipine Allergy Unknown FEET Verified 01/26/20 08:35 SWELLING sulindac Allergy Hives Verified 01/26/20 08:35 Medications Home Medications Medication Instructions Recorded Confirmed Last Taken aspirin 81 mg PO QAM 08/27/18 01/26/20 Unknown atorvastatin 10 mg PO HS 08/27/18 01/26/20 Unknown ergocalciferol (vitamin D2) 50,000 unit PO WK 08/27/18 01/26/20 Unknown levothyroxine 175 mcg PO QAM 08/27/18 01/26/20 Unknown polyethylene glycol 3350 [Miralax] 17 g PO DAILY PRN 08/27/18 01/26/20 Unknown tamsulosin 0.4 mg PO QAM 08/27/18 01/26/20 Unknown acetaminophen 650 mg PO QID PRN 08/28/18 01/26/20 Unknown allopurinol 100 mg PO QAM 08/28/18 01/26/20 Unknown calcium carbonate 750 mg PO QID PRN 08/28/18 01/26/20 Unknown amiodarone 200 mg PO QAM 01/26/20 01/26/20 Unknown metoprolol succinate 25 mg PO BID 01/26/20 01/26/20 Unknown omeprazole 20 mg PO QAM 01/26/20 01/26/20 Unknown potassium chloride 20 meq PO QAM 01/26/20 01/26/20 Unknown torsemide 20 mg PO UD 01/26/20 01/26/20 Unknown Past Medical History Medical History (Updated 01/28/20 @ 08:57 by Manny Jaquez) Acquired hypothyroidism (Chronic) BPH (benign prostatic hyperplasia) Chronic diastolic CHF (congestive heart failure) On daily torsemide. Euvolemic on exam at [facility]. Chronic obstructive pulmonary disease Mild, no inhaler use. CKD (chronic kidney disease), stage III (Chronic) [facility] nephrology - Dr. Nagy. Cr baseline has been ~ 2.5 since 01/2019 oer review of [facility] labs GERD (gastroesophageal reflux disease) Gout History of bradycardia History of ventricular tachycardia 07/2018 HLD (hyperlipidemia) (Chronic) HTN (hypertension) (Chronic) Hx of papillary thyroid carcinoma (Resolved) Malignant neoplasm of colon (Chronic) s/p colectomy and anastamosis Non-ischemic cardiomyopathy s/p ICD placement 07/2018 for EF 30%. Now back to normal EF 50-54% on most recent echo 05/2019. Exercise / Class Metabolic Activity III < 4 Walking/Shop/Light housework (+SOB with ambulation, no chest pain. Limited mobility 2/2 knee pain.) Past Family History Family History Other No family history of adverse response to anesthesia Past Surgical History Surgical History H/O thyroidectomy (Chronic) History of bowel resection History of cardiac catheterization multiple - no stents [place] [place] Normal coronary arteries for 2017 cath. History of colonoscopy History of hernia repair History of left hip replacement History of partial nephrectomy Rt History of rhinoplasty Presence of combination internal cardiac defibrillator (ICD) and pacemaker 08/27/2018 - [facility] - Dr. Blas - [employer] - pt unsure of last check Past Anesthesia History No Hx of Anesthesia Complications and No Family Hx of Anesthesia Complications History of PONV No Hx of Motion Sickness and History of PONV (2/2 narcotics post-op) Social History Smoking Status: Never smoker Do You Dip or Chew Tobacco: No Hx Alcohol Use: No Hx Substance Use: No substance use type: does not use Review of Systems Pt denies any recent chest pain, shortness of breath above baseline, palpitations, cough, fever or URI. Physical Exam Vital Signs BP: 114/71 P: 61bpm SPO2: 97% RA T: 98.0 F R: 18 Constitutional + obese ENMT Mouth: + dentition abnormality (many missing molars); no chipped teeth and no loose teeth Thyromental Distance: < 3.5 Finger Breadths (3) Mallampati Class: I Neck + short neck; neck extension not limited Respiratory normal respiratory effort Auscultation: lungs clear to auscultation bilaterally Cardiovascular Rate/Rhythm: regular rate and regular rhythm Heart Sounds: no murmur Extremities: no edema VERY distant heart sounds Testing Laboratory Results PT 11.2 Seconds (9.0-12.0) 01/27/20 14:53 INR 1.1 (0.9-1.1) 01/27/20 14:53 APTT 27.6 Seconds (21.0-31.0) 01/27/20 14:53 Hemoglobin A1c 5.7 % (4.5-5.6) H 01/27/20 14:53 Urine Color Yellow 01/27/20 14:53 Urine Appearance Clear (Clear) 01/27/20 14:53 Urine pH 7.0 (4.5-7.5) 01/27/20 14:53 Ur Specific [place] 1.011 (1.000-1.030) 01/27/20 14:53 Urine Protein Negative (Negative) 01/27/20 14:53 Urine Glucose (UA) Negative (Negative) 01/27/20 14:53 Urine Ketones Negative (Negative) 01/27/20 14:53 Urine Nitrite Negative (Negative) 01/27/20 14:53 Ur Leukocyte Esterase Negative (Negative) 01/27/20 14:53 Blood Type O Positive 01/27/20 14:53 Antibody Screen NEGATIVE 01/27/20 14:53 01/08/20 WBC: 5.18 H/H: 11.7/37.2 PLATELETS: 192 SODIUM: 144 POTASSIUM: 3.5 CHLORIDE: 101 CO2: 32 BUN: 26 CREATININE: 2.5 GLUCOSE: 87 Electrocardiogram Date: 10/02/19 SR with 1st degree AV block. LAD. RBBB. Possible lateral infarct, age undetermined. Echocardiogram Date: 06/18/19 EF: 50-54 The LV endocardium is adequately assessed using ultrasonic contrast. The LV cavity size is normal. Mild concentric LVH. There is no left ventricular mural thrombus. The LV wall motion is normal. Septal motion is abnormal consistent with intraventricular conduction delay. Grade 1 diastolic dysfunction. Mild aortic valve stenosis (KIRILL 1.4 cm2, mean gradient 11mmHg). Mild aortic valve regurgitation. Normal pulmonary pressure. Since prior study dated 08/22/2018 LV systolic function has improved and pulmonary pressure lower. Cardiac Catheterization Date: 06/05/17 Findings: + normal Other Testing ICD Remote Monitoring Transmission 11/18/19 Model: Linkpass Implant date: 08/27/18 Pacin% Atrial, 0.5% RV Battery: 3.02 volts Shocks: 0 Mode: AAIR/DDDR Impression: Normal defibrillator function. Stable pacing and sensing thresholds. Adequate battery reserve.
[2020-01-27 15:50] LABS: Appearance Urine Clear (Clear); Bilirubin Urine Negative (Negative); Blood Urine Negative (Negative); Color Urine Yellow; Glucose Urine UA Negative (Negative); Ketones Urine Negative (Negative); Leukocyte Esterase Urine Negative (Negative); Nitrite Urine Negative (Negative); Protein Urine Negative (Negative); Specific Gravity Urine 1.011 (1.000-1.030); Urobilinogen Urine Negative (Negative)
[2020-01-27 16:00] LABS: INR 1.1 (0.9-1.1); Partial Thromboplastin Time 27.6 Seconds (21.0-31.0); Prothrombin Time 11.2 Seconds (9.0-12.0)
[2020-01-28 05:40] LABS: Estimated Average Glucose 117 mg/dl; Hemoglobin A1C 5.7 % (4.5-5.6)
--- NOTE | 2020-02-17 17:52 | History and Physical Report ---
DATE OF ADMISSION: 02/18/2020 CHIEF COMPLAINT: Right knee pain. HISTORY OF PRESENT ILLNESS: This is an 84-year-old male patient of Dr. Solis'luis a complaining of chronic right knee pain, longstanding, now progressively getting worse. The patient has failed conservative treatment including use of a brace and wheelchair and use of [id number] medications. The patient has been diagnosed with end-stage osteoarthritis per clinical and radiographic exams. The patient has increased pain with weightbearing activities and his pain does interfere with his activities of daily living. The patient wished to proceed with a right total knee arthroplasty. PAST MEDICAL HISTORY: Hypercholesterolemia, COPD, thyroid cancer, acid reflux, obesity, kidney stones, BPH, colon cancer. SOCIAL HISTORY: Nonsmoker, nondrinker. PAST SURGICAL HISTORY: Hip replacement and thyroidectomy. FAMILY HISTORY: Noncontributory. REVIEW OF SYSTEMS: Chronic right knee pain, otherwise denies any shortness of breath, chest pain, nausea, vomiting or any other joint complaints. MEDICATIONS: 1. Levothyroxine 1 tablet daily. 2. Tamsulosin 0.4 mg daily. 3. Amiodarone 200 mg daily. 4. Allopurinol 100 mg daily. 5. Potassium 20 mEq daily. 6. Metoprolol 25 mg twice daily. 7. Tums 1000 mg as needed. 8. Atorvastatin 10 mg daily. 9. Vitamin D2 1.25 mg weekly. 10. MiraLax 1 capsule at bedtime. 11. Omeprazole 20 mg daily. 12. Furosemide 2 tablets daily. ALLERGIES: CIMETIDINE, SULINDAC, FELODIPINE. PHYSICAL EXAMINATION: GENERAL: Well-developed, well-nourished 84-year-old male in no acute distress. He is alert and oriented x3 and pleasant. HEENT: Normocephalic, atraumatic. Extraocular motions are intact. Pupils are equal and reactive to light. HEART: Regular rate and rhythm, no murmurs. LUNGS: Clear. ABDOMEN: Soft, nontender, bowel sounds present. EXTREMITIES: Right knee 0-100 degrees of range of motion, negative effusion, varus deformity, medial joint line tenderness, 4/5 strength with pain and crepitation. Neurologically and neurovascularly intact right lower extremity. DIAGNOSES: Right knee end-stage osteoarthritis, hypercholesterolemia, chronic obstructive pulmonary disease, thyroid cancer, acid reflux, obesity, kidney stones, enlarged prostate and colon cancer. PLAN: The patient was advised of his diagnoses. Indications, risks, benefits, postop course have all been reviewed. The patient wished to proceed with a right total knee arthroplasty. Necessary consent forms, preoperative testing and clearances will be obtained.
[~2020-02-18 10:59] MED LIST: ACETAMINOPHEN 500 MG TAB PO SCH; BUPIVACAINE 0.5 % 5 MG/1 ML PF 10ML VIAL ONE; BUPIVACAINE/EPINEPHRINE 0.25% 1:200,000 30 ML VIAL ONE; CEFAZOLIN 2000MG 2,000 MG/15 ML SYR IV SCH; CeleBREX 200 MG CAP PO SCH; FAMOTIDINE 20 MG TAB PO SCH; GABAPENTIN 300 MG CAP PO SCH; METOCLOPRAMIDE HCL 10 MG TABLET PO SCH; ROPIVACAINE 0.5% HCL/PF 150 MG, BUPIVACAINE 0.5% MPF 30 ML, EPINEPHrine 30MG/30ML (OR U... INSTIL SCH; SODIUM CHLORIDE 0.9% 1000ML IV SCH; TRANEXAMIC ACID 1,000 MG **IV Intra-op IV SCH; TRANEXAMIC ACID 1,000 MG **IV Pre-op IV SCH; dexAMETHasone 4 MG TAB PO SCH
[2020-02-18] MEDS ORDERED: ONDANSETRON INJ 2 MG/ML 2 ML VIAL IV PRN ×2 (12:51→18:28)
[2020-02-18] MEDS ORDERED: HYDROmorphone INJ 2 MG/ML SYR/VIAL IV PRN (12:51)
[2020-02-18] MEDS ORDERED: ATROPINE SULFATE 0.1 MG/ML 10ML SYR IV PRN (12:51)
[2020-02-18] MEDS ORDERED: ePHEDrine sulfate 50 MG/ML AMP IV PRN (12:51)
[2020-02-18] MEDS ORDERED: fentaNYL citrate 100 MCG/2 ML VIAL IV PRN (12:51)
[2020-02-18] MEDS ORDERED: MIDAZOLAM HCL 1 MG/ML 2ML VIAL ONE (13:37)
[2020-02-18] MEDS ORDERED: PROPOFOL IV EMULSION 10 MG/ML 20 ML VIAL IV ONE ×2 (14:02→16:08)
[2020-02-18] MEDS ORDERED: ORTHO JOINT ANESTHETIC ONE (14:26)
[2020-02-18] MEDS ORDERED: BACITRACIN INJ 50,000 UNIT VIAL ONE (14:26)
--- NOTE | 2020-02-18 14:37 | History & Physical Bridge Note ---
Date of Service February 18, 2020 History & Physical Bridge Note I have examined the patient, reviewed the History & Physical and in the interval since the performance of the History & Physical I have noted the following changes of clinical significance: no changes noted
[2020-02-18] MEDS ORDERED: ROPIVACAINE 0.5% HCL/PF 150 MG, BUPIVACAINE 0.5% MPF 30 ML, EPINEPHrine 30MG/30ML (OR U... INSTIL SCH (15:00)
[2020-02-18] MEDS ORDERED: LIDOCAINE HCL 2% 2 ML VIAL/AMP(20MG/ML) INFIL ONE (15:01)
--- NOTE | 2020-02-18 17:08 | Post Operative Brief Note ---
Immediate Post Op Note v1 Date of Surgery February 18, 2020 Pre & Post Diagnosis Operation Date: 02/18/20 13:20 Pre-Op Diagnosis: RIGHT KNEE OSTEOARTHRITIS, obesity BMI 36.5, lymphedema lower extremities Post-Op Diagnosis: RIGHT KNEE OSTEOARTHRITIS, obesity BMI 36.5, lymphedema lower extremities, popliteal cyst, calcification versus steroid deposit synovium I identified the patient and participated in the time-out.: Yes Procedure Operation Date: 02/18/20 13:20 Actual Procedures p Right Total Knee Arthroplasty(Right), application superficial wound VAC, partial synovectomy- Sky Solis MD Surgeon Sky Solis MD Hogshead Hand JEANINE Hays Estimated Blood Loss 5 Findings Consistent with Post-Op Diagnosis Specimens Bone cuts Drains Hemovac Drain Anesthesia Type MAC Spinal Regional Complications none Disposition Accompanied Patient To Recovery: No Disposition: Recovery Room Overlapping Procedure I was immediately available: during the entire case.
--- NOTE | 2020-02-18 17:12 | Operative Report ---
Post Operative Report Pre & Post Diagnosis 0/ Operation Date: 02/18/20 13:20 Pre-Op Diagnosis: RIGHT KNEE OSTEOARTHRITIS, obesity BMI 36.5, bilateral lower extremity lymphedema Post-Op Diagnosis: RIGHT KNEE OSTEOARTHRITIS, obesity BMI 36.5, calcified synovitis versus steroid deposition, bilateral lower extremity lymphedema, prepatellar bursitis chronic I identified the patient and participated in the time-out.: Yes Procedure Operation Date: 02/18/20 13:20 Actual Procedures p Right Total Knee Arthroplasty(Right), prepatellar bursectomy partial synov ectomy, application superficial wound VAC- Sky Solis MD Surgeon Sky Solis MD Medical Sonographer JEANINE Hays Estimated Blood Loss 5 Findings Consistent with Post-Op Diagnosis Specimens Bone cuts Drains 2 Hemovac Anesthesia Type MAC Spinal Regional Complications none Disposition Accompanied Patient To Recovery: No Disposition: Recovery Room Indications 84-year-old male with severe bilateral knee osteoarthritis worse on right knee with tricompartmental OA [id number] with bone loss of the medial compartment Description of Procedure Patient taken to the operating room the size under spinal MAC regional anesthesia. Patient was placed supine on the operating table. A pneumatic tourniquet was placed about the right upper thigh. The right lower extremity was prepped and draped in sterile fashion. Knee exam demonstrated some opening medial with valgus stress consistent with joint space loss bone loss. 0 through 120 degrees range of motion with varus alignment of the knee and peripheral edema with lymphedema both lower extremities. His obesity was primarily abdominal. The leg was elevated exsanguinated with an Esmarch bandage and pneumatic tourniquet was raised to 350 millimeters of mercury. Skin incised sharply in longitudinal fashion. Upon entering the prepatellar bursa there was significant fluid there and large scarred bands of bursal tissue throughout the prepatellar bursa area. All this thickened bursal tissue was resected sharply. Subcutaneous flaps were elevated then an incision was made through the medial retinaculum extending up to the mid third of the quadriceps tendon and extended down to the tibial tubercle. Intra-articular findings demonstrated tricompartmental osteoarthritis with multiple areas of calcifications within the synovium. A large joint effusion multiple areas of synovitis throughout the knee. Grade 4 medial compartment osteoarthritis with bone loss medial posterior medial tibia tricompartmental osteoarthritic changes chronic ACL tear intact PCL. The Itzel triathlon total knee arthroplasty system was used. To expose the knee the infrapatellar fat pad was resected. The meniscal remnants and posterior cruciate ligament were resected. The anterior fat pad over the femur in the area of the anterior flange of the femoral component was resected. Lateral synovial bands release. The femur was exposed. An intramedullary drill hole was made into the canal. A guide candy was placed. Distal femoral cutting guide was adjusted to resect a 5 degree valgus cut with 8 millimeters distal femur resected. The knee was extended and a subperiosteal peel lateral release was performed around the patella. Patella width was measured and width was reproduced using a freehand cut technique and a 33 x 9 symmetrical patella component. The 3 drill holes were made and the excess lateral facet was beveled off to prevent any impingement. Attention was taken back to the femur which was exposed with retractors and the femoral sizing guide was pinned in position. The drill holes were placed in 3 of external rotation to match epicondylar axis. Femur sized for a 6 component. I used the 1.5 mm Chessman guide to raised resection anterior to prevent notching. The 4-in-1 cutting block was placed and then the anterior posterior and chamfer cuts are made. The tibia was then subluxed. The external tibial cutting guide was just to make a perpendicular cut to the long axis of the tibia below the most deficient bone loss on the medial side. A lamina system dispatcher was used and the flexion extension gaps were balanced. All posterior osteophytes removed. All meniscal remnants were resected. A posterior medial popliteal cyst was decompressed and the fluid was expressed into the joint and suctioned. The calcified synovium was resected when encountered in both gutters suprapatellar pouch and posterior joint space. The tibia exposed and the trial tibial component size 5 was externally rotated in line with the tibial tubercle and pinned in position. The the drill and punch for stem was used. I chose using a longer cemented stem for more stability to the patient's preoperative instability due to bone loss. The notch cutting device was centered appropriately and the femoral notch cut was made. The femoral trial was inserted. Trial tibial inserts were placed and size 13 constrained gave balanced ligaments through flexion and extension. Patella tracking was assessed. The patella tracked centrally. The trial components were then removed and the orthomix anesthetic cocktail was injected per protocol. The knee was then copiously irrigated with pulsatile lavage antibiotic solution. Final components were then cemented with Simplex cement. Final components were Itzel triathlon size 6 right posterior stabilized femoral component with femoral distal fixation pegs, size 5 universal tibial baseplate with 12 mm x 50 mm cemented stem and the ex 3 polyethylene total stabilizer constrained tibial insert 13 mm and the S 33 x 9 patella. While the cement cured the Betadine soak was used per protocol. After cement cured further pulsatile lavage irrigation performed and 2 Hemovac drains were brought out laterally. The quadriceps tendon and medial retinaculum were closed with figure of 8 #1 Vicryl sutures. The knee was taken through full range of motion and the repair was secure. The subcutaneous tissues were closed with 2-0 Vicryl sutures. Skin was closed with jennifer. A superficial wound VAC was applied. Patient procedure well. JEANINE Hays was my physician training program assistant who assisted in patient positioning prepping and draping,leg positioning ,soft tissue retraction and instrument management and participated in the closing and application of superficial wound VAC and will participate in postoperative care of the patient. The patient tolerated the procedure well. I attest to the content of the Intraoperative Record and any orders documented therein. Any exceptions are noted below.
--- NOTE | 2020-02-18 17:35 | XRay Report ---
XR knee RT 1 or 2V routine CLINICAL HISTORY: Postoperative evaluation. COMPARISON: None FINDINGS: Note is made of a constrained total right knee arthroplasty. The hardware is intact. There are skin jennifer and drains. There are no unexpected radiopaque foreign bodies. No acute fracture is noted. IMPRESSION: Expected findings following total right knee arthroplasty. ACT 112: Negative or not required by law. Electronically signed by: Naveed Buitrago M.D. 02/18/2020 5:33 PM
[2020-02-18] MEDS: SODIUM CHLORIDE 0.9% 1000ML 1,000 ML IV SCH (18:15)
[2020-02-18] MEDS ORDERED: bisacodyL 10 MG SUPP PR PRN (18:28)
[2020-02-18] MEDS ORDERED: POLYETHYLENE (MIRALAX) 17 GM PACK PO PRN (18:28)
[2020-02-18] MEDS ORDERED: MAGNESIUM HYDROXIDE SUSP 30 ML UDC PO PRN (18:28)
[2020-02-18] MEDS ORDERED: HYDROmorphone INJ 0.5 MG/0.5 ML SYR IV PRN (18:28)
[2020-02-18] MEDS ORDERED: NALOXONE HCL 0.4 MG/1 ML VIAL/CARP IV PRN (18:28)
[2020-02-18] MEDS ORDERED: CALCIUM CARBONATE 500 MG CHEWABLE TAB PO PRN (19:02)
[2020-02-18] MEDS: [UNRECOGNIZED DRUG - REMARK] SCH ×5 (19:24→21:56)
[2020-02-18] MEDS: [UNRECOGNIZED DRUG - REMARK] SCH ×6 (19:24→21:56)
[2020-02-18] MEDS: SENNA 8.6 MG TAB PO SCH (20:52)
[2020-02-18] MEDS: METOPROLOL SUCC 25MG EXT REL TAB PO SCH (20:52)
[2020-02-18] MEDS: ATORVASTATIN 10 MG TAB PO SCH (20:52)
[2020-02-18] MEDS: TORSEMIDE 20 MG TAB PO SCH (20:52)
[2020-02-18] MEDS: DOCUSATE SODIUM 100 MG CAP PO SCH (20:52)
[2020-02-18] MEDS: ASPIRIN 81 MG ECTAB PO SCH (20:52)
[2020-02-18] MEDS: ACETAMINOPHEN 500 MG TAB PO SCH (20:53)
--- NOTE | 2020-02-18 21:41 | Anesthesiology Progress Note ---
Date of Service February 18, 2020 Anesthesia Post Procedure Vital Signs Vital Signs: Temp Pulse Pulse Pulse Resp BP BP 02/18/20 21:16 36.4 C L 60 16 109/62 02/18/20 20:46 36.5 C 60 16 116/67 02/18/20 19:48 36.5 C 60 18 130/71 02/18/20 18:46 36.6 C 60 16 129/73 02/18/20 18:15 36.4 C L 61 16 111/64 02/18/20 18:00 60 18 116/63 02/18/20 17:50 36.2 C L 60 21 117/64 02/18/20 17:40 63 20 93/57 L 02/18/20 17:30 64 19 113/64 02/18/20 17:20 67 19 110/60 02/18/20 17:10 36.3 C L 74 20 98/58 L 02/18/20 12:20 61 18 132/72 02/18/20 11:46 36.6 C 59 L 18 155/88 H Pulse Ox 02/18/20 21:16 97 02/18/20 20:46 97 02/18/20 19:48 97 02/18/20 18:46 97 02/18/20 18:15 96 02/18/20 18:00 96 02/18/20 17:50 94 02/18/20 17:40 94 02/18/20 17:30 95 02/18/20 17:20 95 02/18/20 17:10 98 02/18/20 12:20 96 02/18/20 11:46 98 Transfer of Care Handoff Completed per policy Notes Mental Status: alert / awake / arousable and participated in evaluation Nausea / Vomiting: adequately controlled Pain: adequately controlled Airway Patency, RR, SpO2: stable & adequate BP & HR: stable & adequate Hydration State: stable & adequate Neuraxial Anesthesia: was administered and sensory block is resolving Anesthetic Complications: no major complications apparent and Pt Satisfied with anesthetic care
[2020-02-18] MEDS: CEFAZOLIN 2000MG 2,000 MG/15 ML SYR IV SCH (22:32)
[2020-02-19] MEDS: SODIUM CHLORIDE 0.9% 1000ML 1,000 ML IV SCH (05:15)
[2020-02-19] MEDS: LEVOTHYROXINE SODIUM 175 MCG TABLET PO SCH (06:22)
[2020-02-19] MEDS: ACETAMINOPHEN 500 MG TAB PO SCH ×3 (06:22→21:03)
[2020-02-19] MEDS: CEFAZOLIN 2000MG 2,000 MG/15 ML SYR IV SCH (06:22)
[2020-02-19 06:46] LABS: Hematocrit (blood only) 32.9 % (42-52); Hemoglobin 10.7 g/dL (14.0-18.0); Mean Corpuscular Hemoglobin 31.7 pg (25-34); Mean Corpuscular Hgb Conc 32.5 g/dL (32-36); Mean Corpuscular Volume 97.3 fL (80-100); Platelet Count 155 K/uL (130-400); RDW Coefficient of Variation 13.2 % (11.5-14.5); RDW Standard Deviation 47.1 fL (36.4-46.3); Red Blood Count 3.38 M/uL (4.7-6.1); White Blood Count 10.25 K/uL (4.8-10.8)
[2020-02-19 07:27] LABS: BUN Creatinine Ratio 9.9 (10-20); Creatinine Clr Calc Pharmacy 27.9 ml/min; Est GFR (African American) 26.5; Est GFR (Non-African American) 22.8; Potassium 4.1 mmol/L (3.5-5.1)
[2020-02-19] MEDS: DOCUSATE SODIUM 100 MG CAP PO SCH ×2 (08:34→20:36)
[2020-02-19] MEDS: AMIODARONE 200 MG TAB PO SCH (08:35)
[2020-02-19] MEDS: TORSEMIDE 20 MG TAB PO SCH (08:35)
[2020-02-19] MEDS: PANTOprazole 40 MG TAB PO SCH (08:35)
[2020-02-19] MEDS: POTASSIUM CHLORIDE 20 MEQ TABCR PO SCH (08:36)
[2020-02-19] MEDS: ASPIRIN 81 MG ECTAB PO SCH ×2 (08:36→20:36)
[2020-02-19] MEDS: MULTIVITAMIN TAB PO SCH (08:36)
[2020-02-19] MEDS: TAMSULOSIN HCL 0.4 MG CAP PO SCH (08:36)
[2020-02-19] MEDS: allopurinoL 100 MG TAB PO SCH (08:37)
[2020-02-19] MEDS: METOPROLOL SUCC 25MG EXT REL TAB PO SCH ×2 (08:37→20:36)
[2020-02-19] MEDS: OXYCODONE HCL IR 5 MG TAB (IMMEDIATE RELEASE) PO PRN ×2 (10:05→23:19)
--- NOTE | 2020-02-19 12:25 | Orthopedic Progress Note ---
Date of Service February 19, 2020 Assessment & Plan (1) Arthritis of right knee: POD #1, Right TKA PT/ OT DVT proph- ASA DC planning- Home w HH Appreciate medicine input. Admission and Anticipated Discharge Date Admission Date: February 18, 2020 Subjective POD #1, Doing well. Denies SOB, CP, N/V, Dizziness. Pain controlled well. Wishes HH upon discharge. Physical Exam Physical Exam: VSS Right knee dressings c/d/i, no drainage. Toes/ ankle mobile. No calf tenderness. A&Ox3. CKD BUN/Cr elevated. Results & Data ([facility]) Vital Signs (Past 12 Hours) Vital Signs Temp Pulse Resp BP BP Pulse Ox 02/19/20 11:18 36.5 C 60 16 100/62 94 02/19/20 08:38 61 148/85 H 95 02/19/20 07:40 36.4 C L 60 18 129/74 95 02/19/20 02:40 36.4 C L 58 L 18 150/84 H 95
--- NOTE | 2020-02-19 16:13 | Hospitalist Consultation ---
Date of Consultation February 19, 2020 Assessment & Plan (1) Arthritis of right knee: S/p right TKA with Dr. Solis on 02/18/2020. - Doing well post-operatively. - Mild expected acute blood loss anemia -> Hgb 12.9 to 10.7. Monitor. - DVT ppx per primary team (2) Non-ischemic cardiomyopathy: Presently euvolemic on my exam today (02/18). - Continue torsemide 20 mg PO, but I will lower the dose to daily for now to be sure we don't cause an ELEAZAR. (3) Paroxysmal SVT (supraventricular tachycardia): None noted so far. HR in the 60s. - Continue amiodarone & beta-maycol (4) Acquired hypothyroidism: No TSH in chart, but no signs/symptoms of hypo-/hyperthyroidism. - Continue home Synthroid 175 mcg (5) CKD (chronic kidney disease), stage III: Baseline appears to be ~2.1, though this was from 07/2018. - Presently Cr up to 2.5; will hold the extra dose of diuretic as above (6) HTN (hypertension): BP down to 105/60. - Continue beta-maycol (7) DVT prophylaxis: ASA BID per primary team History of Present Illness Attending Physician: Sky Solis MD History of Present Illness 84yo M w/ hx of RIGHT KNEE OSTEOARTHRITIS who presents after Right Total Knee Arthroplasty with Dr. Solis. Patient in no major pain at present. Doing well. Allergies Allergy/AdvReac Type Severity Reaction Status Date / Time felodipine Allergy Unknown FEET Verified 02/18/20 11:37 SWELLING sulindac Allergy Hives Verified 02/18/20 11:37 Home Medications Home Medications Medication Instructions Recorded Confirmed Type aspirin 81 mg PO QAM 08/27/18 01/26/20 History atorvastatin 10 mg PO HS 08/27/18 01/26/20 History ergocalciferol (vitamin D2) 50,000 unit PO WK 08/27/18 02/18/20 History levothyroxine 175 mcg PO QAM 08/27/18 01/26/20 History polyethylene glycol 3350 [Miralax] 17 g PO DAILY PRN 08/27/18 01/26/20 History tamsulosin 0.4 mg PO QAM 08/27/18 01/26/20 History acetaminophen 650 mg PO QID PRN 08/28/18 01/26/20 History allopurinol 200 mg PO QAM 08/28/18 02/18/20 History calcium carbonate 750 mg PO QID PRN 08/28/18 01/26/20 History amiodarone 200 mg PO QAM 01/26/20 01/26/20 History metoprolol succinate 25 mg PO BID 01/26/20 01/26/20 History omeprazole 20 mg PO QAM 01/26/20 01/26/20 History potassium chloride 20 meq PO QAM 01/26/20 02/18/20 History torsemide 40 mg PO BID 01/26/20 02/18/20 History Patient History Medical History Acquired hypothyroidism (Chronic) BPH (benign prostatic hyperplasia) Chronic diastolic CHF (congestive heart failure) On daily torsemide. Euvolemic on exam at [facility]. Chronic obstructive pulmonary disease Mild, no inhaler use. CKD (chronic kidney disease), stage III (Chronic) [facility] nephrology - Dr. Nagy. Cr baseline has been ~ 2.5 since 01/2019 oer review of [facility] labs GERD (gastroesophageal reflux disease) Gout History of bradycardia History of ventricular tachycardia 07/2018 HLD (hyperlipidemia) (Chronic) HTN (hypertension) (Chronic) Hx of papillary thyroid carcinoma (Resolved) Malignant neoplasm of colon (Chronic) s/p colectomy and anastamosis Non-ischemic cardiomyopathy s/p ICD placement 07/2018 for EF 30%. Now back to normal EF 50-54% on most recent echo 05/2019. Surgical History H/O thyroidectomy (Chronic) History of bowel resection History of cardiac catheterization multiple - no stents - most recent 2016 ([facility] or [place] Normal coronary arteries for 2017 cath. History of colonoscopy History of hernia repair History of left hip replacement History of partial nephrectomy Rt History of rhinoplasty Presence of combination internal cardiac defibrillator (ICD) and pacemaker 08/27/2018 - [facility] - Dr. Blas - Xopiktronic - pt unsure of last check Family History Other No family history of adverse response to anesthesia Social History Smoking Status: Never smoker Second Hand Exposure: Yes (as a child); Do You Dip or Chew Tobacco: No; Hx Alcohol Use: No Hx Substance Use: No Preferred Language: Portuguese Communication Ability: Effective Dopeman Required: No Beliefs That Will Affect Care: None marital status: Current Living Situation: Spouse Feels Safe at Home: Yes Safety Concerns: Feels Safe At This Time Review of Systems Review of Systems: All systems reviewed & are unremarkable except as noted in HPI & below Physical Exam Constitutional: WD/WN, vitals as above Eyes: EOM intact bilaterally; no conjunctival abnormality ENMT: external ear and nose normal, oropharynx normal Neck: trachea midline, no thyromegaly normal visual inspection Respiratory: normal respiratory effort, lungs clear to auscultation no respiratory distress Cardiovascular: RRR, no murmur, no edema Gastrointestinal (Abdomen): Inspection/Auscultation: abdomen normal to inspection; abdomen not distended Musculoskeletal: no cyanosis or clubbing, extremities motor strength 5/5 Extremities: + extremities abnormal to inspection (Right knee in brace) Skin: no rashes, warm and dry Neurologic: moves all extremities and awake Psychiatric: Orientation: alert, oriented to person and cooperative Results & Data Results & Data ([facility]) Vital Signs (Past 12 Hours) Vital Signs Temp Pulse Resp BP BP Pulse Ox 02/19/20 15:17 36.4 C L 61 17 104/61 95 02/19/20 11:18 36.5 C 60 16 100/62 94 02/19/20 08:38 61 148/85 H 95 02/19/20 07:40 36.4 C L 60 18 129/74 95 PG Care Time/CCT Total # of Minutes Spent Total Time Spent with Patient: Total time spent is greater than 50% in coordination of care (as documented) at patient's floor/unit and/or counseling patient: Coding Level of Care Code 90746 Inpt Consult Level 4 Diagnoses Arthritis of right knee M17.11 Non-ischemic cardiomyopathy I42.8 Paroxysmal SVT (supraventricular tachycardia) I47.1 Acquired hypothyroidism E03.9 CKD (chronic kidney disease), stage III N18.3 HTN (hypertension) I10 DVT prophylaxis Z29.9
[2020-02-19] MEDS: SENNA 8.6 MG TAB PO SCH (20:36)
[2020-02-19] MEDS: ATORVASTATIN 10 MG TAB PO SCH (20:36)
[2020-02-20] MEDS: LEVOTHYROXINE SODIUM 175 MCG TABLET PO SCH (05:13)
[2020-02-20] MEDS: ACETAMINOPHEN 500 MG TAB PO SCH ×3 (05:13→21:24)
[2020-02-20 05:47] LABS: Hematocrit (blood only) 33.2 % (42-52); Hemoglobin 10.9 g/dL (14.0-18.0); Mean Corpuscular Hemoglobin 32.2 pg (25-34); Mean Corpuscular Hgb Conc 32.8 g/dL (32-36); Mean Corpuscular Volume 98.2 fL (80-100); Mean Platelet Volume 9.5 fL (7.4-10.4); Platelet Count 199 K/uL (130-400); RDW Coefficient of Variation 13.6 % (11.5-14.5); RDW Standard Deviation 48.3 fL (36.4-46.3); Red Blood Count 3.38 M/uL (4.7-6.1); White Blood Count 10.97 K/uL (4.8-10.8)
[2020-02-20 06:22] LABS: BUN Creatinine Ratio 11.7 (10-20); Calcium 6.8 mg/dl (8.5-10.1); Creatinine Clr Calc Pharmacy 25.9 ml/min; Est GFR (African American) 24.2; Est GFR (Non-African American) 20.9; Magnesium 2.2 mg/dl (1.8-2.4); Potassium 4.4 mmol/L (3.5-5.1)
--- NOTE | 2020-02-20 07:59 | Orthopedic Progress Note ---
Date of Service February 20, 2020 Assessment & Plan (1) Arthritis of right knee: POD #2, Right TKA PT/ OT DVT proph- ASA DC planning- Home w HH when stable Was SOB and slow in PT, pain needs to be better controlled, has heart disease, will re consider D/C tomorrow. Appreciate medicine input. Admission and Anticipated Discharge Date Admission Date: February 18, 2020 Subjective POD #2, C/o increased pain and stiffness. Denies SOB, CP, N/V, Dizziness. Slow in PT with SOB Wishes HH upon discharge. Physical Exam Physical Exam: Right knee prevena c/d/i, no drainage. Toes/ ankle mobile. No calf tenderness. A&Ox3. Results & Data ([facility]) Vital Signs (Past 12 Hours) Vital Signs Temp Pulse Resp BP Pulse Ox 02/20/20 06:44 36.6 C 61 14 123/76 96 02/19/20 23:27 36.4 C L 60 14 139/77 96 02/19/20 20:34 60 149/81 H
[2020-02-20] MEDS: OXYCODONE HCL IR 5 MG TAB (IMMEDIATE RELEASE) PO PRN ×2 (08:03→12:12)
[2020-02-20] MEDS ORDERED: ERGOCALCIFEROL 50,000 UNITS CAP PO SCH (09:00)
[2020-02-20] MEDS: allopurinoL 100 MG TAB PO SCH (09:02)
[2020-02-20] MEDS: TAMSULOSIN HCL 0.4 MG CAP PO SCH (09:02)
[2020-02-20] MEDS: ASPIRIN 81 MG ECTAB PO SCH ×2 (09:03→21:24)
[2020-02-20] MEDS: POTASSIUM CHLORIDE 20 MEQ TABCR PO SCH (09:03)
[2020-02-20] MEDS: PANTOprazole 40 MG TAB PO SCH (09:03)
[2020-02-20] MEDS: AMIODARONE 200 MG TAB PO SCH (09:03)
[2020-02-20] MEDS: MULTIVITAMIN TAB PO SCH (09:04)
[2020-02-20] MEDS: DOCUSATE SODIUM 100 MG CAP PO SCH ×2 (09:04→21:23)
[2020-02-20] MEDS: METOPROLOL SUCC 25MG EXT REL TAB PO SCH ×2 (09:04→21:23)
[2020-02-20] MEDS ORDERED: NORMOSOL-R 500 ML IV ONE (11:45)
[2020-02-20] MEDS ORDERED: IRON SUCROSE 300 MG in SODIUM CHLORIDE 0.9% 250 ML IV STA (16:17)
--- NOTE | 2020-02-20 16:17 | Hospitalist Progress Note ---
Date of Service February 20, 2020 Assessment & Plan (1) Arthritis of right knee: S/p right TKA with Dr. Solis on 02/18/2020. - Doing well post-operatively. - Mild expected acute blood loss anemia -> Hgb 12.9 to 10.9 today. Give one dose of IV iron. - DVT ppx per primary team (2) Non-ischemic cardiomyopathy: Presently euvolemic on my exam today (02/18). - Held torsemide for increase in Cr to 2.7 today. Gave small IV fluid bolus. (3) Paroxysmal SVT (supraventricular tachycardia): None noted so far. HR in the 60s. - Continue amiodarone & beta-maycol (4) Acquired hypothyroidism: No TSH in chart, but no signs/symptoms of hypo-/hyperthyroidism. - Continue home Synthroid 175 mcg (5) CKD (chronic kidney disease), stage III: Baseline appears to be ~2.1, though this was from 07/2018. - Presently Cr up to 2.7; holding the diuretic as above (6) HTN (hypertension): BP down to 105/60. - Continue beta-maycol (7) DVT prophylaxis: ASA BID per primary team Will check AM labs and adjust torsemide, but otherwise Hospital Medicine team will sign off. Please re-consult with any questions or concerns. Thank you for letting us assist in the care of this patient! Admission and Anticipated Discharge Date Admission Date: February 18, 2020 Subjective No major complaints today. The right knee is painful. Reports no fevers/chills, chest pain, shortness of breath, abdominal pain, nausea, or vomiting. Physical Exam Constitutional: WD/WN, vitals as above Eyes: EOM intact bilaterally; no conjunctival abnormality ENMT: external ear and nose normal, oropharynx normal Neck: trachea midline, no thyromegaly normal visual inspection Respiratory: normal respiratory effort, lungs clear to auscultation no respiratory distress Cardiovascular: RRR, no murmur, no edema Gastrointestinal (Abdomen): Inspection/Auscultation: abdomen normal to in spection; abdomen not distended Musculoskeletal: no cyanosis or clubbing, extremities motor strength 5/5 Extremities: + extremities abnormal to inspection (Right knee with wound vac in place.) Skin: no rashes, warm and dry Neurologic: moves all extremities and awake Psychiatric: Orientation: alert, oriented to person and cooperative Results & Data Results & Data ([facility]) Vital Signs (Past 12 Hours) Vital Signs Temp Pulse Resp BP Pulse Ox 02/20/20 15:48 36.5 C 60 16 117/70 94 02/20/20 11:32 94 02/20/20 09:05 63 142/78 H 98 02/20/20 06:44 36.6 C 61 14 123/76 96 PG Care Time/CCT Total # of Minutes Spent Total Time Spent with Patient: Total time spent is greater than 50% in coordination of care (as documented) at patient's floor/unit and/or counseling patient: Coding Level of Care Code 60890 Subseq Hosp Care Lvl 2 Diagnoses Arthritis of right knee M17.11 Non-ischemic cardiomyopathy I42.8 Paroxysmal SVT (supraventricular tachycardia) I47.1 Acquired hypothyroidism E03.9 CKD (chronic kidney disease), stage III N18.3 HTN (hypertension) I10 DVT prophylaxis Z29.9
[2020-02-20] MEDS: SENNA 8.6 MG TAB PO SCH (21:22)
[2020-02-20] MEDS: ATORVASTATIN 10 MG TAB PO SCH (21:23)
[2020-02-21 06:00] LABS: Hematocrit (blood only) 29.9 % (42-52); Hemoglobin 9.9 g/dL (14.0-18.0); Mean Corpuscular Hemoglobin 32.2 pg (25-34); Mean Corpuscular Hgb Conc 33.1 g/dL (32-36); Mean Corpuscular Volume 97.4 fL (80-100); Mean Platelet Volume 9.7 fL (7.4-10.4); Platelet Count 166 K/uL (130-400); RDW Coefficient of Variation 14.2 % (11.5-14.5); RDW Standard Deviation 49.6 fL (36.4-46.3); Red Blood Count 3.07 M/uL (4.7-6.1); White Blood Count 6.88 K/uL (4.8-10.8)
[2020-02-21] MEDS: OXYCODONE HCL IR 5 MG TAB (IMMEDIATE RELEASE) PO PRN (06:00)
[2020-02-21] MEDS: ACETAMINOPHEN 500 MG TAB PO SCH ×2 (06:00→12:20)
[2020-02-21] MEDS: LEVOTHYROXINE SODIUM 175 MCG TABLET PO SCH (06:00)
[2020-02-21 06:32] LABS: BUN Creatinine Ratio 15.3 (10-20); Calcium 6.5 mg/dl (8.5-10.1); Creatinine Clr Calc Pharmacy 30.5 ml/min; Est GFR (African American) 29.5; Est GFR (Non-African American) 25.5; Magnesium 2.4 mg/dl (1.8-2.4)
[2020-02-21] MEDS: PANTOprazole 40 MG TAB PO SCH (07:41)
[2020-02-21] MEDS: TAMSULOSIN HCL 0.4 MG CAP PO SCH (07:41)
[2020-02-21] MEDS: AMIODARONE 200 MG TAB PO SCH (07:41)
[2020-02-21] MEDS: MULTIVITAMIN TAB PO SCH (07:41)
[2020-02-21] MEDS: ASPIRIN 81 MG ECTAB PO SCH (07:42)
[2020-02-21] MEDS: allopurinoL 100 MG TAB PO SCH (07:42)
[2020-02-21] MEDS: METOPROLOL SUCC 25MG EXT REL TAB PO SCH (07:42)
[2020-02-21] MEDS: POTASSIUM CHLORIDE 20 MEQ TABCR PO SCH (07:42)
[2020-02-21] MEDS: DOCUSATE SODIUM 100 MG CAP PO SCH (07:43)
--- NOTE | 2020-02-21 08:06 | Orthopedic Progress Note ---
Date of Service February 21, 2020 Assessment & Plan (1) Status post right knee replacement: 84 yo male stable POD #3 s/p right TKA 1. Med management 2. DVT prophylaxis- ASA, SCDs 3. PT/OT 4. D/C planning- home w/ HH Admission and Anticipated Discharge Date Admission Date: February 18, 2020 Subjective Pt with c/o moderate pain, otherwise seems well Physical Exam Physical Exam: Prevena in place, toes mobile, NVI, calves soft, NT Results & Data ([facility]) Vital Signs (Past 12 Hours) Vital Signs Temp Pulse Resp BP BP Pulse Ox 02/21/20 06:24 36.6 C 63 18 131/56 L 96 02/20/20 23:38 36.6 C 60 14 115/64 95 02/20/20 21:15 57 L 104/61 93 Laboratory Results 02/21/20 02/21/20 Range/Units 05:12 05:12 WBC 6.88 (4.8-10.8) K/uL RBC 3.07 L (4.7-6.1) M/uL Hgb 9.9 L (14.0-18.0) g/dL Hct 29.9 L (42-52) % MCV 97.4 (80-100) fL MCH 32.2 (25-34) pg MCHC 33.1 (32-36) g/dL RDW Std Deviation 49.6 H (36.4-46.3) fL RDW Coeff of Pastor 14.2 (11.5-14.5) % Plt Count 166 (130-400) K/uL MPV 9.7 (7.4-10.4) fL Sodium 140 (136-145) mmol/L Potassium 4.0 (3.5-5.1) mmol/L Chloride 105 (98-107) mmol/L Carbon Dioxide 29 (21-32) mmol/L Anion Gap 6.0 (3-11) BUN 35 H (7-18) mg/dl Creatinine 2.30 H D (0.6-1.4) mg/dl Est Cr Clr Drug Dosing 30.5 ml/min Est GFR ( Amer) 29.5 Est GFR (Non-Af Amer) 25.5 BUN/Creatinine Ratio 15.3 (10-20) Glucose 93 (70-99) mg/dl Calcium 6.5 L (8.5-10.1) mg/dl Magnesium 2.4 (1.8-2.4) mg/dl
--- NOTE | 2020-03-05 18:40 | Discharge Summary (DS) ---
CHIEF COMPLAINT: Chronic right knee pain. HISTORY OF PRESENT ILLNESS: This is an 84-year-old male patient of Dr. Solis'luis a complaining of chronic right knee pain, longstanding, progressively getting worse. The patient failed conservative treatment and elected to proceed with a right total knee arthroplasty. PAST MEDICAL HISTORY: Hypercholesterolemia, COPD, thyroid cancer, acid reflux, obesity, kidney stones, BPH and colon cancer. POSTOPERATIVE COURSE: The patient underwent a right total knee arthroplasty on 02/18/2020. He did relatively well postoperatively. On postoperative day #1 and #2, he was very slow with physical therapy. He easily got short of breath. Vital signs remained stable. He did not need oxygen. However, he did require a third day in the hospital due to his slow progression, physical therapy and pain control. On postoperative day #3, he was doing very well in therapy and balancing on his walker. His pain was controlled by postoperative day #3. PHYSICAL EXAMINATION: On discharge, right knee Prevena wound VAC was clean, dry and intact. It was holding suction well. He had no redness or drainage from the area. No calf tenderness. Negative Homans sign. Toes and ankle were mobile. Neurologically and neurovascularly, he was intact in his right lower extremity. DIAGNOSES: Status post right total knee arthroplasty with application of superficial wound VAC, hypercholesterolemia, chronic obstructive pulmonary disease, thyroid cancer, acid reflux, obesity, kidney stones, benign prostatic hyperplasia and colon cancer. PLAN: The patient was discharged home with home health services. He was cleared medically prior to leaving the hospital. He will continue his preadmission medications with the addition of aspirin for DVT prophylaxis and pain medications as needed. The patient will follow up as scheduled as an outpatient.
== END 2020-02-21 12:52 | disposition home health service (06) | DRG 470 ==
LOC: ASU 10:59 → 3E 17:18

== ENCOUNTER 2020-12-08 06:54 | Observation (INO) ==
--- NOTE | 2020-11-18 14:16 | Anesthesiology Consultation ---
Date of Service November 18, 2020 Assessment & Plan (1) Encounter for pre-operative examination: Chart Review Chart Review: Pending: Refer to Additional Notes / Consult section (pending 11/25 cardio clearance and preop Covid testing ) and Patient NOT seen in Pre Admission Testing Awaiting preop cardio clearance scheduled 11/25/20 with Mark Per nursing assessment November 18, 2020, patient resides in [facility]. Wea rs mask, uses good hand hygiene and socially distances. No known Covid positive contacts or Covid related symptoms. No known Covid infection in the past 90 days. Preop Covid testing scheduled 11/30/20 at [facility]. Did speak with [facility] that this is 8 days prior to surgery- they will change Covid testing until 12/03/20= will await results Right TKA 02/18/2020 = done under SAB at L3-4 with 1 attempt. No anesthesia issues noted per anesthesia record. History Surgery Operation Date: 12/08/20 12:25 Proposed Procedures p Left Knee Total Knee Arthroplasty(Left) - Sky Solis MD Height/Weight Height: 5 ft 10 in Weight: 106.141 kg Allergies Allergy/AdvReac Type Severity Reaction Status Date / Time felodipine Allergy Unknown FEET Verified 11/18/20 11:39 SWELLING sulindac Allergy Unknown Hives Verified 11/18/20 11:39 oxycodone AdvReac Unknown DISORIENTED Verified 11/18/20 11:39 Medications Home Medications Medication Instructions Recorded Confirmed Last Taken atorvastatin 10 mg PO HS 08/27/18 11/18/20 02/17/20 23:00 ergocalciferol (vitamin D2) 50,000 unit PO WK 08/27/18 11/18/20 02/13/20 levothyroxine 150 mcg PO QAM 08/27/18 11/18/20 02/18/20 08:30 polyethylene glycol 3350 [Miralax] 17 g PO HS PRN 08/27/18 11/18/20 02/17/20 23:00 tamsulosin 0.4 mg PO HS 08/27/18 11/18/20 02/18/20 08:30 allopurinol 100 mg PO QAM 08/28/18 11/18/20 02/18/20 08:30 calcium carbonate 750 mg PO TID PRN 0111/18/20 02/17/20 23:00 amiodarone 200 mg PO QAM 01/26/20 11/18/20 02/18/20 08:30 metoprolol succinate 25 mg PO BID 01/26/20 11/18/20 02/18/20 08:30 omeprazole 20 mg PO QAM 01/26/20 11/18/20 02/18/20 08:30 potassium chloride 20 meq PO QAM 01/26/20 11/18/20 02/17/20 08:30 torsemide 20 - 40 mg PO BID 01/26/20 11/18/20 02/17/20 23:00 acetaminophen 1,000 mg PO Q8 PRN 11/18/20 11/18/20 Unknown Past Medical History Medical History (Updated 11/18/20 @ 14:04 by Hyun Rose PA-C) Acquired hypothyroidism BPH (benign prostatic hyperplasia) Chronic diastolic CHF (congestive heart failure) On daily torsemide. Chronic obstructive pulmonary disease Mild, no inhaler use. CKD (chronic kidney disease), stage IV S/p partial right nephrectomy for suspected cancer. [facility] nephrology - Dr. Nagy. Cr baseline has been 1.8-2.3 since 2013 per 10/04/20 nephrology note GERD (gastroesophageal reflux disease) Gout History of bradycardia History of ventricular tachycardia 07/2018 HLD (hyperlipidemia) HTN (hypertension) Hx of papillary thyroid carcinoma Malignant neoplasm of colon s/p colectomy and anastamosis Mild aortic valve stenosis Per 06/18/19 ECHO= KIRILL 1.4 cm2, mean gradient 11mmHg; AV velocity 2.159m/s Non-ischemic cardiomyopathy s/p ICD placement (Medtronic) 07/2018 for EF 30%. Now back to normal EF 50-54% on most recent echo 05/2019. SOB (shortness of breath) on exertion Past Family History Family History Other No family history of adverse response to anesthesia Past Surgical History Surgical History (Updated 11/18/20 @ 14:04 by Hyun Rose PA-C) H/O thyroidectomy History of bowel resection 2013 History of cardiac catheterization multiple - no stents - most recent 2016 ([facility]). Normal coronary arteries for 2017 cath. History of colonoscopy History of hernia repair History of left hip replacement History of partial nephrectomy Rt History of permanent cardiac pacemaker placement F/U DR CESAR History of rhinoplasty History of total knee replacement RIGHT 01/2020 Presence of combination internal cardiac defibrillator (ICD) and pacemaker 08/27/2018 - [facility] - Dr. Cesar - Medtronic - Last check Aug 2020 Social History Smoking Status: Never smoker Do You Dip or Chew Tobacco: No Hx Alcohol Use: No Hx Substance Use: No substance use type: does not use Lab Results Anesthesia Preop Results Results Anesthesia Widget: WBC 8.06 K/uL (4.8-10.8) 11/12/20 Hgb 11.9 g/dL (14.0-18.0) L 11/12/20 Hct 37.4 % (42-52) L 11/12/20 Plt 224 K/uL (130-400) 11/12/20 Na 139 mmol/L (136-145) 11/12/20 K 3.9 mmol/L (3.5-5.1) 11/12/20 Cl 101 mmol/L (98-107) 11/12/20 CO2 31 mmol/L (21-32) 11/12/20 BUN 24 mg/dl (7-18) H 11/12/20 Creat 2.45 mg/dl (0.6-1.4) H 11/12/20 Glucose Level 114 mg/dl (70-99) H 11/12/20 PT 10.9 Seconds (9.0-12.0) 11/12/20 PTT 30.1 Seconds (21.0-31.0) 11/12/20 INR 1.1 (0.9-1.1) 11/12/20 HA1c 5.5 % (4.5-5.6) 11/12/20 Urine Color Yellow 11/12/20 Urine Appearance Clear (Clear) 11/12/20 Urine pH 7.5 (4.5-7.5) 11/12/20 Urine Specific [place] 1.010 (1.000-1.030) 11/12/20 Urine Protein Negative (Negative) 11/12/20 Urine Glucose (UA) Negative (Negative) 11/12/20 Urine Ketones Negative (Negative) 11/12/20 Urine Blood Negative (Negative) 11/12/20 Urine Nitrite Negative (Negative) 11/12/20 Urine Bilirubin Negative (Negative) 11/12/20 Urine Urobilinogen Negative (Negative) 11/12/20 Urine Leukocyte Esterase Negative (Negative) 11/12/20 Lab Comments: Anemia chronic and stable since Jul 2019 Elevated BUN/creatine chronic and stable since January 2020 Testing Laboratory Results 11/12/20= URINE CULTURE: No growth Electrocardiogram Date: 03/03/20 Sinus rhythm with first-degree AV block with occasional PVCs at 60 bpm. Left axis deviation. Right bundle branch block. When compared to EKG from October 02, 2019PVCs are now present per cardio. Chest X-Ray Date: 03/03/20 Findings: + NAD Cardiac silhouette upper limits of normal. Cardiac device in place with leads in the right atrium and right ventricle. Echocardiogram Date: 06/18/19 EF: 50-54 LV Function: normal The LV endocardium is adequately assessed using ultrasonic contrast. The LV cavity size is normal. Mild concentric LVH. There is no left ventricular mural thrombus. The LV wall motion is normal. Septal motion is abnormal consistent with intraventricular conduction delay. Grade 1 diastolic dysfunction. Mild aortic valve stenosis (KIRILL 1.4 cm2, mean gradient 11mmHg; AV velocity 2.159m/s). Mild aortic valve regurgitation. Normal pulmonary pressure. Since prior study dated 08/22/2018 LV systolic function has improved and pulmonary pressure lower. Stress Test Date: 06/05/17 Type: nuclear Probable mixed ischemia and infarction involving the inferior segments. Gated wall motion shows inferior wall hypokinesis. Qualitative assessment showed LV overall systolic function to be normal at 55%. Large sized, moderate intensity, partially reversible inferior defect. Mild soft tissue attenuation artifacts identified. (Patient had subsequent cardiac catheterization that showed angiographically normal coronary arteries) Cardiac Catheterization Date: 06/05/17 LM = no evidence of disease LAD = no evidence of disease Circumflex = no evidence of disease RCA = no evidence of disease Conclusions: Coronary arteries are angiographically normal. Recommendations: Risk factor lifestyle modification. Continue medical management. Other Testing Pacer/ICD check 09/20/2020 = Medtronic device. Implanted 08/27/2018. Atrial paced 86%. RV paced 1%. 0 shocks. Pacemaker mode/rate: AAIR/DDDR at 60 bpm. Normal defibrillator function. Stable pacing and sensing thresholds. Adequate battery reserve.
--- NOTE | 2020-12-06 21:20 | History & Physical Report ---
Date of Service December 06, 2020 Assessment & Plan (1) Primary osteoarthritis of left knee: Treatment options discussed with patient. He has failed conservative measures and would like to proceed with left knee surgical intervention. Risks, benefits and alternatives to surgery including but not limited to infection, DVT, pain, stiffness, need for revision surgery, damage to blood vessels, damage to nerves, PE, , were discussed with the patient and they wish to proceed. Plan for left total knee arthroplasty at [facility] on 12/08/[address] Solis. Will plan on HHPT post discharge as well as ASA 81mg BID x 1 mo for DVT prophylaxis. All questions answered. F/u post operatively. History of Present Illness Primary Care Provider: Rambo Wolff 85 year old male with PMHx significant for hypothyroidism, CKD3, CHF, HTN, presents with longstanding left knee pain. Has hx of right TKA and has done well. He has failed conservative measures including injections and anti- inflammatories. Pain interfering with his daily activities. He would like to proceed with left knee replacement. Patient denies headaches, sweats, fevers, chills, double vision, blurred vision, cough, sore throat, dysphagia, chest pain, sob, wheezing, n/v/d/c, numbness, tingling, fatigue, urinary symptoms, mood disorders. ROS positive for left knee pain and stiffness. Allergies Allergy/AdvReac Type Severity Reaction Status Date / Time felodipine Allergy Unknown FEET Verified 11/18/20 11:39 SWELLING sulindac Allergy Unknown Hives Verified 11/18/20 11:39 oxycodone AdvReac Unknown DISORIENTED Verified 11/18/20 11:39 Home Medications Medication Instructions Recorded Confirmed Type atorvastatin 10 mg PO HS 08/27/18 11/18/20 History ergocalciferol (vitamin D2) 50,000 unit PO WK 08/27/18 11/18/20 History levothyroxine 150 mcg PO QAM 08/27/18 11/18/20 History polyethylene glycol 3350 [Miralax] 17 g PO HS PRN 08/27/18 11/18/20 History tamsulosin 0.4 mg PO HS 08/27/18 11/18/20 History allopurinol 100 mg PO QAM 08/28/18 11/18/20 History calcium carbonate 750 mg PO TID PRN 08/28/18 11/18/20 History amiodarone 200 mg PO QAM 01/26/20 11/18/20 History metoprolol succinate 25 mg PO BID 01/26/20 11/18/20 History omeprazole 20 mg PO QAM 01/26/20 11/18/20 History potassium chloride 20 meq PO QAM 01/26/20 11/18/20 History torsemide 20 - 40 mg PO BID 01/26/20 11/18/20 History acetaminophen 1,000 mg PO Q8 PRN 11/18/20 11/18/20 History Past Med/Surg History Medical History (Updated 12/06/20 @ 21:19 by Jemal Trivedi) Acquired hypothyroidism BPH (benign prostatic hyperplasia) Chronic diastolic CHF (congestive heart failure) On daily torsemide. Chronic obstructive pulmonary disease Mild, no inhaler use. CKD (chronic kidney disease), stage IV S/p partial right nephrectomy for suspected cancer. [facility] nephrology - Dr. Nagy. Cr baseline has been 1.8-2.3 since 2013 per 10/04/20 nephrology note GERD (gastroesophageal reflux disease) Gout History of bradycardia History of ventricular tachycardia 07/2018 HLD (hyperlipidemia) HTN (hypertension) Hx of papillary thyroid carcinoma LBBB (left bundle branch block) Chronic Malignant neoplasm of colon s/p colectomy and anastamosis Mild aortic valve stenosis Per 06/18/19 ECHO= KIRILL 1.4 cm2, mean gradient 11mmHg; AV velocity 2.159m/s Non-ischemic cardiomyopathy s/p ICD placement (Medtronic) 07/2018 for EF 30%. Now back to normal EF 50-54% on most recent echo 05/2019. Paroxysmal SVT (supraventricular tachycardia) Sick sinus syndrome SOB (shortness of breath) on exertion Surgical History (Updated 11/18/20 @ 14:04 by Hyun Rose PA-C) H/O thyroidectomy History of bowel resection 2013 History of cardiac catheterization multiple - no stents - most recent 2016 ([facility]). Normal coronary arteries for 2017 cath. History of colonoscopy History of hernia repair History of left hip replacement History of partial nephrectomy Rt History of permanent cardiac pacemaker placement F/U DR CESAR History of rhinoplasty History of total knee replacement RIGHT 01/2020 Presence of combination internal cardiac defibrillator (ICD) and pacemaker 08/27/2018 - [facility] - Dr. Cesar - Medtronic - Last check Aug 2020 Family History Other No family history of adverse response to anesthesia Social History Smoking Status: Never smoker Second Hand Exposure: No; Hx Alcohol Use: No Hx Substance Use: No Preferred Language: German Communication Ability: Effective Rolloff Driver Required: No Beliefs That Will Affect Care: None marital status: Current Living Situation: Spouse Feels Safe at Home: Yes Assistive Devices: Brace/Splint/Immobilizer and Glasses Review of Systems All systems reviewed & are unremarkable except as noted in HPI & below Physical Exam Constitutional: well developed and well nourished; no acute distress Eyes: PERRL, conjunctivae normal, anicteric sclerae ENMT: external ear and nose normal, oropharynx normal Neck: trachea midline, no thyromegaly Respiratory: normal respiratory effort, lungs clear to auscultation Cardiovascular: RRR, no murmur, no edema Musculoskeletal: Left knee: Valgus alignment with mild effusion. Tenderness medial and lateral joint line. ROM 0-110 degrees, crepitation. Stable to valgus and varus stress. Skin: no rashes, warm and dry Neurologic: patellar DTR's 2+ bilat, sensation intact Psychiatric: A+Ox3, euthymic affect Results & Data ([facility]) Diagnostic Findings Left knee: Severe endstage arthritis left knee bone on bone lateral compartment with signifcant joint space narrowing medially. Periarticular osteophyte formation and subchondral sclerosis.
[~2020-12-08 06:54] MED LIST changes: -BUPIVACAINE/EPINEPHRINE 0.25% 1:200,000 30 ML VIAL ONE; -CEFAZOLIN 2000MG 2,000 MG/15 ML SYR IV SCH; -CeleBREX 200 MG CAP PO SCH; +EPINEPHrine INJ 1 MG/ML AMP ONE; +ROPIVACAINE 0.5% 5 MG/ML 30 ML VIAL ONE; -ROPIVACAINE 0.5% HCL/PF 150 MG, BUPIVACAINE 0.5% MPF 30 ML, EPINEPHrine 30MG/30ML (OR U... INSTIL SCH; +SODIUM CHLORIDE 0.9% 1,000 ML IV SCH; -SODIUM CHLORIDE 0.9% 1000ML IV SCH; +ceFAZolin 2000MG 2,000 MG/15 ML SYR IV SCH
[2020-12-08] MEDS ORDERED: LIDOCAINE HCL 2% 2 ML VIAL/AMP(20MG/ML) INFIL ONE (07:49)
[2020-12-08] MEDS ORDERED: PROPOFOL IV EMULSION 10 MG/ML 20 ML VIAL IV ONE ×3 (07:49→12:21)
[2020-12-08] MEDS ORDERED: MIDAZOLAM HCL 1 MG/ML 2ML VIAL ONE (07:49)
--- NOTE | 2020-12-08 10:05 | History & Physical Bridge Note ---
Date of Service December 08, 2020 History & Physical Bridge Note I have examined the patient, reviewed the History & Physical and in the interval since the performance of the History & Physical I have noted the following changes of clinical significance: no changes noted
[2020-12-08] MEDS ORDERED: Nursing to Pharmacy Communication SCH (10:15)
[2020-12-08] MEDS ORDERED: ROPIVACAINE 0.5% HCL/PF 150 MG, BUPIVACAINE 0.75% MPF 20 ML, EPINEPHrine 30MG/30ML (OR ... INFIL ONE (10:15)
[2020-12-08] MEDS ORDERED: ONDANSETRON INJ 2 MG/ML 2 ML VIAL ONE (10:59)
[2020-12-08] MEDS ORDERED: ATROPINE SULFATE 0.1 MG/ML 10ML SYR IV PRN (11:01)
[2020-12-08] MEDS ORDERED: ePHEDrine sulfate 50 MG/ML AMP IV PRN (11:01)
[2020-12-08] MEDS ORDERED: ePHEDrine sulfate 50 MG/ML AMP ONE (11:10)
--- NOTE | 2020-12-08 12:43 | Operative Report ---
Post Operative Report Pre & Post Diagnosis Operation Date: 12/08/20 09:20 Pre-Op Diagnosis: Unilateral Primary Osteoarthritis Left Knee Post-Op Diagnosis: Unilateral Primary Osteoarthritis Left Knee, Calcific prepatellar bursitis I identified the patient and participated in the time-out.: Yes Procedure Operation Date: 12/08/20 09:20 Actual Procedures p Left Knee Total Knee Arthroplasty, Pre-Patellar Bursectomy, application superficial wound VAC (Left) - Sky Solis MD Surgeon Sky Solis MD Manager Of Merchandising Godfrey SOLORZANO Estimated Blood Loss 5 Findings Consistent with Post-Op Diagnosis Specimens Bone cuts Drains 2 Hemovac Anesthesia Type MAC Spinal Regional Complications none Disposition Accompanied Patient To Recovery: No Disposition: Recovery Room Indications 85-year-old male with severe osteoarthritis left knee. He has tricompartmental osteoarthritis joint space narrowing most of his osteoarthritis is lateral compartment mild valgus alignment to his knee. History of a more significantly arthritic right knee post right total knee arthroplasty doing well post that procedure. Description of Procedure Patient taken to the operating room the size under spinal MAC regional anesthesia. Patient was placed supine on the operating table. A pneumatic tourniquet was placed about the left upper thigh. The left lower extremity was prepped and draped in sterile fashion. Knee exam demonstrated mild valgus alignment good range of motion moderate effusion. The leg was elevated exsangu inated with an Esmarch bandage and pneumatic tourniquet was raised to 325 millimeters of mercury. Skin incised sharply in longitudinal fashion. This exposed prepatellar bursa which was significantly scarred to the patella anteriorly and there was thickened scarred bursal tissue. Within the bursa tissue there were several areas of calcification within the bursa that had sort of a neal discoloration to the bony deposits. These were all excised along with the scarred prepatellar bursa. Subcutaneous flaps elevated. Incision was made through the medial retinaculum extending up in the mid third of the quadriceps tendon and down to the medial tibial tubercle. Intra-articular findings demonstrated tricompartmental osteoarthritis with grade 4 lateral compartment eburnated bone mainly on the flexion surfaces. There is also a chronic ACL tear.. The Revetto triathlon total knee arthroplasty system was used. To expose the knee the infrapatellar fat pad was resected. The meniscal remnants and posterior cruciate ligament and remnants of the ACL were resected. The anterior fat pad over the femur in the area of the anterior flange of the femoral component was resected. Lateral synovial bands release. The femur was exposed. An intramedullary drill hole was made into the canal. A guide candy was placed. Distal femoral cutting guide was adjusted to resect a 5 degree valgus cut with 8 millimeters distal femur resected. The knee was extended and a subperiosteal peel lateral release was performed around the patella. Patella width was measured and width was reproduced using a freehand cut technique and a 36 x 10 symmetrical patella component. The 3 drill holes were made and the excess lateral facet was beveled off to prevent any impingement. Attention was taken back to the femur which was exposed with retractors and the femoral sizing guide was pinned in position. The drill holes were placed in just slightly greater than 3 of external rotation to match epicondylar axis. Femur sized for a 7 component. The 4-in-1 cutting block was placed and then the anterior posterior and chamfer cuts are made. The tibia was then subluxed. The external tibial cutting guide was just to make a perpendicular cut to the long axis of the tibia below the most deficient bone loss side. A lamina sensor specialist was used and the flexion extension gaps were balanced. All posterior osteophytes removed. All meniscal remnants were resected. The tibia exposed and the trial tibial component size 6 was externally rotated in line with the tibial tubercle and pinned in position. The punch for stem was used. The notch cutting device was centered appropriately and the femoral notch cut was made. The femoral trial was inserted. Drill holes for for the lugs on the component were made. T rial tibial inserts were placed and size 11 posterior stabilized gave balanced ligaments through flexion and extension. Patella tracking was assessed. The patella tracked with some lateral tilt so I performed the lateral leads leaving as much the synovium intact as possible. Patella tracked completely centrally at this time. Patient full range of motion of the knee stable through full range.. The trial components were then removed and the orthomix anesthetic cocktail was injected per protocol. The knee was then copiously irrigated with pulsatile lavage antibiotic solution. Final components were then cemented with Simplex cement. Final components were triathlon left size 7 posterior stabilized femoral component, size 6 primary tibial baseplate, X3 polyethylene size 11 tibial insert. The S 36 x 10 mm symmetrical patella X3 polyethylene. While the cement cured the Betadine soak was used per protocol. After cement cured further pulsatile lavage irrigation performed and 2 Hemovac drains were brought out laterally. The quadriceps tendon and medial retinaculum were closed with figure of 8 #1 Vicryl sutures. The knee was taken through full range of motion and the repair was secure. The subcutaneous tissues were closed with 2-0 Vicryl sutures. Skin was closed with jennifer. A lara and Acticoat superficial wound VAC was applied. Patient tolerated the procedure well. Godfrey SOLORZANO was my physician community relations assistant who assisted in patient positioning prepping and draping,leg positioning ,soft tissue retraction and instrument management and participated in the closing including application of superficial wound VAC and will participate in postoperative care of the patient. The patient tolerated the procedure well. I attest to the content of the Intraoperative Record and any orders documented therein. Any exceptions are noted below.
--- NOTE | 2020-12-08 13:53 | XRay Report ---
XR knee LT 1 or 2V routine CLINICAL HISTORY: Postoperative evaluation. COMPARISON: None FINDINGS: Alignment of the total left knee arthroplasty is anatomic. There is no periprosthetic frac ture or unexpected radiopaque foreign body. There are drains and skin jennifer. IMPRESSION: Expected findings following total left knee arthroplasty. ACT 112: Negative or not required by law. Electronically signed by: Naveed Buitrago M.D. 12/08/2020 1:51 PM
--- NOTE | 2020-12-08 14:19 | Anesthesiology Progress Note ---
Date of Service December 08, 2020 Anesthesia Post Procedure Vital Signs Vital Signs: Temp Pulse Pulse Resp BP Pulse Ox 12/08/20 14:10 36.3 C L 60 18 127/77 96 12/08/20 14:00 60 12 115/66 96 12/08/20 13:50 60 20 107/65 96 12/08/20 13:40 60 16 131/81 98 12/08/20 13:30 60 14 112/63 100 12/08/20 13:20 60 16 108/59 L 100 12/08/20 13:17 36.1 C L 62 12 104/55 L 100 12/08/20 07:45 36.5 C 59 L 18 112/63 96 Transfer of Care Handoff Completed per policy Notes Mental Status: alert / awake / arousable Patient Amnestic to Procedure: Yes Nausea / Vomiting: adequately controlled Pain: adequately controlled Airway Patency, RR, SpO2: stable & adequate BP & HR: stable & adequate Hydration State: stable & adequate Neuraxial Anesthesia: was administered and sensory block is resolving Anesthetic Complications: no major complications apparent
[2020-12-08] MEDS ORDERED: ONDANSETRON INJ 2 MG/ML 2 ML VIAL IV PRN (15:04)
[2020-12-08] MEDS ORDERED: NALOXONE HCL 0.4 MG/1 ML VIAL/CARP IV PRN (15:04)
[2020-12-08] MEDS ORDERED: METOCLOPRAMIDE HCL INJ 5 MG/ML 2 ML VIAL IV PRN (15:04)
[2020-12-08] MEDS ORDERED: HYDROmorphone INJ 0.5 MG/0.5 ML SYR IV PRN (15:04)
[2020-12-08] MEDS ORDERED: traMADol HCL 50 MG TABLET PO PRN (15:04)
[2020-12-08] MEDS ORDERED: SODIUM CHLORIDE 0.9% 1000ML 1,000 ML IV SCH (15:04)
[2020-12-08] MEDS ORDERED: bisacodyL 10 MG SUPP PR PRN (15:04)
[2020-12-08] MEDS ORDERED: MAGNESIUM HYDROXIDE SUSP 30 ML UDC PO PRN (15:04)
[2020-12-08] MEDS ORDERED: CALCIUM CARBONATE 500 MG CHEWABLE TAB PO PRN (15:19)
[2020-12-08] MEDS: ACETAMINOPHEN 500 MG TAB PO SCH (15:53)
--- NOTE | 2020-12-08 16:00 | Consultation ---
Date of Consultation December 08, 2020 Assessment & Plan (1) Primary osteoarthritis of left knee: Status post left total knee arthroplasty by Dr. Solis, POD #0 EBL 5 mL; Hemovac in place Pain/wound management per orthopedics Activity, therapy and diet as directed by orthopedics Encourage incentive spirometry wean oxygen as able Monitor hemoglobin, 11.9 preop (2) Chronic diastolic CHF (congestive heart failure): (3) Mild aortic valve stenosis: Last echocardiogram 2018 revealed EF 50 to 55%, grade 1 diastolic dysfunction, mild aortic valve stenosis, mild aortic valve regurgitation Patient with history of nonischemic cardiomyopathy, normal coronaries via cath 2017 Daily weights, strict I's and O's - baseline weight is 238lb at home Continue metoprolol, hold torsemide until volume status reassessed in a.m. - this will need to be resumed under reconciled meds as its currently on hold (4) CKD (chronic kidney disease), stage IV: Baseline creatinine 2.4-2.7 Preop creatinine 2.4 Avoid nephrotoxic agents (5) HTN (hypertension): bp mildly elevated, monitor continue metoprolol, hold torsemide until volume status reassessed in a.m. (6) Sick sinus syndrome: s/p PPM last interrogation 09/20/20, normal function (7) Acquired hypothyroidism: continue levothyroxine (8) Non-sustained ventricular tachycardia: hx of NSVT, PSVT continue amiodarone, metoprolol pacemaker, AICD in place follows [facility] (9) DVT prophylaxis: ASA BID per ortho Dispo: medical PCP: Dr. German FULL CODE Pt was seen and examined in collaboration with Dr. Almodovar, please see addendum Thank you for this consultation. We will follow the patient with you during their hospital stay. You can reach a member of the [facility] Hospitalist Team 19/02 via hospitalist role on tiger text. Supervising Physician Co-Signing Physician Notes Patient is an 85-year-old male with history of hypertension, hyperlipidemia, diastolic heart failure and other medical problems was consulted for postop medical management after having left total knee arthroplasty by Dr. Solis. Patient is doing well postoperatively. He denies any significant pain at surgical site. Also denies any chest pain, shortness of breath, dizziness, nausea, abdominal pain. Please review HPI for complete details. On exam patient is obese, no apparent distress, normocephalic atraumatic, lungs are clear to auscultation, S1-S2, no murmur, no pedal edema, abdomen soft, nontender, normal bowel sounds, alert, awake, oriented, left knee surgical site in dressing, complete neurological exam not performed. Patient is consulted for postop medical management. Wound care, activity, DVT prophylaxis as per primary team. Continue bowel regimen to prevent constipation. Monitor CBC for postop anemia. Monitor renal function closely given CKD. Monitor volume status while on IV fluids given CHF. I personally reviewed the record. Patient is interviewed and examined at bedside. Patient's care is coordinated with Danielle Kramer. Please refer to the documentation above for details of patient's presentation and for discussion of other issues. History of Present Illness Requesting Physician: Dr. 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 Patient had a right total knee last January and did well, except for had ADR to oxycodone with delirium which prolonged his hospital stay. Currently he feels well and is able to move the left lower extremity. He denies any fever, chills, sweats, lightheadedness, dizziness, chest pain, shortness of breath, cough, nausea, vomiting, abdominal pain, change in bowel or urinary habits. He offers no acute concerns at this time. He does have history of chronic diastolic CHF. His dry weight is 238 pounds and he weighs himself daily. He has been compliant with his medications. He also has history of sick sinus syndrome as well as nonsustained V. tach for which she has a pacer and AICD in place. It was last interrogated August 2020 with normal function. Allergies Allergy/AdvReac Type Severity Reaction Status Date / Time felodipine Allergy Unknown FEET Verified 12/08/20 07:36 SWELLING sulindac Allergy Unknown Hives Verified 12/08/20 07:36 oxycodone AdvReac Unknown DISORIENTED Verified 12/08/20 07:36 Home Medications Medication Instructions Recorded Confirmed Type atorvastatin 10 mg PO HS 08/27/18 12/08/20 History ergocalciferol (vitamin D2) 50,000 unit PO WK 08/27/18 12/08/20 History levothyroxine 150 mcg PO QAM 08/27/18 11/18/20 History polyethylene glycol 3350 [Miralax] 17 g PO HS PRN 08/27/18 12/08/20 History tamsulosin 0.4 mg PO HS 08/27/18 12/08/20 History allopurinol 100 mg PO QAM 08/28/18 11/18/20 History calcium carbonate 750 mg PO TID PRN 08/28/18 12/08/20 History amiodarone 200 mg PO QAM 01/26/20 11/18/20 History metoprolol succinate 25 mg PO BID 01/26/20 11/18/20 History omeprazole 20 mg PO QAM 01/26/20 11/18/20 History potassium chloride 20 meq PO QAM 01/26/20 12/08/20 History torsemide 20 mg PO DAILY@1500 01/26/20 12/08/20 History acetaminophen 1,000 mg PO Q8 PRN 11/18/20 12/08/20 History aspirin [Aspir-81] 81 mg PO DAILY 12/08/20 12/08/20 History torsemide 40 mg PO QAM 12/08/20 12/08/20 History Patient History Medical History (Updated 12/08/20 @ 15:50 by Danielle Mccauley PA-C) Acquired hypothyroidism BPH (benign prostatic hyperplasia) Chronic diastolic CHF (congestive heart failure) On daily torsemide. Chronic obstructive pulmonary disease Mild, no inhaler use. CKD (chronic kidney disease), stage IV S/p partial right nephrectomy for suspected cancer. [facility] nephrology - Dr. Nagy. Cr baseline has been 1.8-2.3 since 2013 per nephrology note GERD (gastroesophageal reflux disease) Gout History of bradycardia History of ventricular tachycardia 07/2018 HLD (hyperlipidemia) HTN (hypertension) Hx of papillary thyroid carcinoma LBBB (left bundle branch block) Chronic Malignant neoplasm of colon s/p colectomy and anastamosis Mild aortic valve stenosis Per 06/18/19 ECHO= KIRILL 1.4 cm2, mean gradient 11mmHg; AV velocity 2.159m/s Non-ischemic cardiomyopathy s/p ICD placement (Medtronic) 07/2018 for EF 30%. Now back to normal EF 50-54% on most recent echo 05/2019. Paroxysmal SVT (supraventricular tachycardia) Sick sinus syndrome SOB (shortness of breath) on exertion Surgical History H/O thyroidectomy History of bowel resection 2013 History of cardiac catheterization multiple - no stents - most recent 2016 ([facility]). Normal coronary arteries for 2017 cath. History of colonoscopy History of hernia repair History of left hip replacement History of partial nephrectomy Rt History of permanent cardiac pacemaker placement F/U DR CESAR History of rhinoplasty History of total knee replacement RIGHT 01/2020 Presence of combination internal cardiac defibrillator (ICD) and pacemaker 08/27/2018 - [facility] - Dr. Cesar - Medtronic - Last check Aug 2020 Family History Mother CHF (congestive heart failure) Sister Colorectal cancer Parkinson disease Brother Prostate cancer Other No family history of adverse response to anesthesia Social History Smoking Status: Never smoker Second Hand Exposure: No; Do You Dip or Chew Tobacco: No; Tobacco Cessation Education Requested by Patient: No Hx Alcohol Use: No Hx Substance Use: No Preferred Language: Scottish Communication Ability: Effective Milk Driver Required: No Beliefs That Will Affect Care: None marital status: Current Living Situation: Spouse Other Information That Helps Us Care for You: No Feels Safe at Home: Yes Safety Concerns: Feels Safe At This Time Assistive Devices: Glasses Assistive Devices Comment: BRACE PRN Review of Systems Review of Systems: All systems reviewed & are unremarkable except as noted in HPI & below Physical Exam Physical Exam: Constitutional: WD/WN, vitals as above, NAD, sitting up in bed, pleasant, conversing easily Head: Normocephalic, Atraumatic Eyes: PERRL, conjunctivae normal, anicteric sclerae ENMT: external ear and nose normal, oropharynx normal Neck: trachea midline, no thyromegaly normal visual inspection Respiratory: normal respiratory effort, lungs clear to auscultation, no wheeze, rales, rhonchi. Normal insp/exp effort, no accessory muscle use Cardiovascular: RRR, no murmur, no edema Vessels: no JVD or carotid bruit Chest: normal inspection of chest Abdomen: normal bowel sounds, soft, nontender, no hepatosplenomegaly Musculoskeletal: no cyanosis or clubbing, extremities motor strength 5/5 Skin: no rashes, warm and dry normal turgor Neurologic: PERRL, EOMI, accommodation nl, no face palsy, no dysarthria CN's II-XI intact bilaterally and moves all extremities Psychiatric: A+Ox3, euthymic affect Lymphatic: no cervical or axillary lymphadenopathy : deferred Results & Data ([facility]) Vital Signs (Past 12 Hours) Vital Signs Temp Pulse Pulse Resp BP Pulse Ox 12/08/20 15:34 60 14 148/81 H 97 12/08/20 15:04 36.7 C 60 14 127/71 98 12/08/20 15:00 36.7 C 60 14 127/71 93 12/08/20 14:45 60 18 132/76 98 12/08/20 14:31 60 16 131/76 98 12/08/20 14:20 60 16 149/83 H 99 12/08/20 14:10 36.3 C L 60 18 127/77 96 12/08/20 14:00 60 12 115/66 96 12/08/20 13:50 60 20 107/65 96 12/08/20 13:40 60 16 131/81 98 12/08/20 13:30 60 14 112/63 100 12/08/20 13:20 60 16 108/59 L 100 12/08/20 13:17 36.1 C L 62 12 104/55 L 100 12/08/20 07:45 36.5 C 59 L 18 112/63 96 Laboratory Results Pre op labs 11/12/20 H&H 11.9 and 37.4, WBC 8.06, platelet 224 BMP: Sodium 139, K3.9, BUN 24, creatinine 2.45, glucose 114, urinalysis negative, Covid screen negative Diagnostic Findings Knee X-Ray 12/08/20 13:25 XR knee LT 1 or 2V routine CLINICAL HISTORY: Postoperative evaluation. COMPARISON: None FINDINGS: Alignment of the total left knee arthroplasty is anatomic. There is no periprosthetic fracture or unexpected radiopaque foreign body. There are drains and skin jennifer. IMPRESSION: Expected findings following total left knee arthroplasty. ACT 112: Negative or not required by law. Electronically signed by: Naveed Buitrago M.D. 12/08/2020 1:51 PM Medications Administered Acetaminophen (Acetaminophen 500 Mg Tab) 1,000 mg PO PREOP JOHANNA Stop: 12/08/20 18:00 Last Admin: 12/08/20 07:28 Dose: 1,000 mg Documented by: [id number] Dexamethasone (Dexamethasone 4 Mg Tab) 8 mg PO PREOP JOHANNA Stop: 12/08/20 18:00 Last Admin: 12/08/20 07:28 Dose: 8 mg Documented by: [id number] Famotidine (Famotidine 20 Mg Tab) 20 mg PO PREOP JOHANNA Stop: 12/08/20 18:00 Last Admin: 12/08/20 07:29 Dose: 20 mg Documented by: [id number] Gabapentin (Gabapentin 300 Mg Cap) 300 mg PO PREOP JOHANNA Stop: 12/08/20 18:00 Last Admin: 12/08/20 07:28 Dose: 300 mg Documented by: [id number] Sodium Chloride (Nss 1000ml) 1,000 mls @ 15 mls/hr IV .Q24H JOHANNA Stop: 12/09/20 05:59 Last Admin: 12/08/20 07:32 Dose: 15 mls/hr Documented by: [id number] Cefazolin Sodium (Ancef 2000mg) 2,000 mg in 15 mls @ 3.75 mls/min IV PREOP [facility]; Protocol Stop: 12/08/20 18:00 Last Admin: 12/08/20 10:42 Dose: 3.75 mls/min Documented by: [id number] Tranexamic Acid (Tranexamic Acid / 0.7% Nacl) 1,000 mg in 100 mls @ 600 mls/hr IV TODAY@0600 JOHANNA Stop: 12/08/20 18:00 Last Infusion: 12/08/20 15:47 Dose: 0 mls/hr Documented by: [id number] Admin: 12/08/20 12:35 Dose: 600 mls/hr Documented by: [id number] Tranexamic Acid (Tranexamic Acid / 0.7% Nacl) 1,000 mg in 100 mls @ 600 mls/hr IV TODAY@0600 JOHANNA Stop: 12/08/20 18:00 Last Infusion: 12/08/20 13:05 Dose: 0 mls/hr Documented by: [id number] Infusion: 12/08/20 10:42 Dose: 0 mls/hr Documented by: [id number] Admin: 12/08/20 10:25 Dose: 600 mls/hr Documented by: [id number] Sodium Chloride (Nss 1000ml) 1,000 mls @ 100 mls/hr IV .Q10H JOHANNA Stop: 12/09/20 06:00 Last Admin: 12/08/20 15:38 Dose: 100 mls/hr Documented by: [id number] Metoclopramide HCl (Metoclopramide Hcl 10 Mg Tablet) 10 mg PO PREOP JOHANNA Stop: 12/08/20 18:00 Last Admin: 12/08/20 07:28 Dose: 10 mg Documented by: [id number] Discontinued Medications Ropivacaine 150 mg/Bupivacaine HCl 20 ml/Epinephrine HCl 0.15 mg/Ketorolac Tromethamine 30 mg/Dexamethasone 4 mg/ Ketamine HCl 10 mg/ Clonidine HCl 100 mcg/ Sodium Chloride 88.35 mls @ 0 mls/hr INFIL NOW ONE; Protocol Stop: 12/08/20 10:16 Last Admin: 12/08/20 12:07 Dose: 88.35 mls/hr Documented by: [id number] ECG Rate (beats per minute): 60 Rhythm: normal sinus Findings: + RBBB and + paced rhythm
[2020-12-08] MEDS: ceFAZolin 2000MG 2,000 MG/15 ML SYR IV SCH (18:26)
[2020-12-08] MEDS: ATORVASTATIN 10 MG TAB PO SCH (20:14)
[2020-12-08] MEDS: SENNA 8.6 MG TAB PO SCH (20:14)
[2020-12-08] MEDS: TAMSULOSIN HCL 0.4 MG CAP PO SCH (20:14)
[2020-12-08] MEDS: METOPROLOL SUCC 25MG EXT REL TAB PO SCH (20:14)
[2020-12-08] MEDS: ASPIRIN 81 MG ECTAB PO SCH (20:14)
[2020-12-08] MEDS: DOCUSATE SODIUM 100 MG CAP PO SCH (20:16)
[2020-12-08] MEDS ORDERED: TORSEMIDE 20 MG PO SCH (21:00)
[2020-12-09] MEDS: ACETAMINOPHEN 500 MG TAB PO SCH ×4 (01:23→23:45)
[2020-12-09] MEDS: ceFAZolin 2000MG 2,000 MG/15 ML SYR IV SCH (01:23)
[2020-12-09] MEDS: LEVOTHYROXINE SODIUM 150 MCG TABLET PO SCH (05:46)
[2020-12-09 06:03] LABS: Hematocrit (blood only) 32.8 % (42-52); Hemoglobin 10.6 g/dL (14.0-18.0); Mean Corpuscular Hemoglobin 31.8 pg (25-34); Mean Corpuscular Hgb Conc 32.3 g/dL (32-36); Mean Corpuscular Volume 98.5 fL (80-100); Mean Platelet Volume 9.1 fL (7.4-10.4); Platelet Count 180 K/uL (130-400); RDW Coefficient of Variation 13.8 % (11.5-14.5); Red Blood Count 3.33 M/uL (4.7-6.1); White Blood Count 11.39 K/uL (4.8-10.8)
[2020-12-09 06:33] LABS: BUN Creatinine Ratio 11.5 (10-20); Calcium 7.2 mg/dl (8.5-10.1); Creatinine Clr Calc Pharmacy 24.1 ml/min; Est GFR (African American) 22.5 ml/min; Est GFR (Non-African American) 19.5 ml/min; Magnesium 2.3 mg/dl (1.8-2.4)
--- NOTE | 2020-12-09 07:30 | Orthopedic Progress Note ---
Date of Service December 09, 2020 Assessment & Plan (1) Primary osteoarthritis of left knee: POD#1 left TKA -PT/OT -Pain management as written -DVT prophylaxis-SCDs, TEDs, ASA 81mg BID -AM labs-hemoglobin at 10.6 this morning. Creatine elevated to 2.86 from 2.45 preop, hx of CKD -D/c planning home with home health PT upon discharge when stable, possibly tomorrow. Admission and Anticipated Discharge Date Admission Date: December 08, 2020 Subjective Patient resting in bed comfortably. Doing well overall. Pain well controlled. Denies chest pain, sob, dizziness, headache, fever, n/v/d. Review of Systems Review of Systems: All systems reviewed & are unremarkable except as noted in HPI & below Physical Exam Physical Exam: Dressing to left knee is c/d/i. Toes mobile with good dorsiflexion. No calf tenderness. Distally n/v status and sensation are intact. Constitutional: well developed and well nourished; no acute distress Results & Data ([facility]) Vital Signs (Past 12 Hours) Vital Signs Temp Pulse Resp BP Pulse Ox 12/09/20 04:23 37.3 C 62 15 121/70 91 12/08/20 22:59 36.5 C 60 16 127/76 94 12/08/20 19:07 36.5 C 61 16 123/70 91
[2020-12-09] MEDS: DOCUSATE SODIUM 100 MG CAP PO SCH ×2 (08:15→19:09)
[2020-12-09] MEDS: allopurinoL 100 MG TAB PO SCH (08:15)
[2020-12-09] MEDS: AMIODARONE 200 MG TAB PO SCH (08:16)
[2020-12-09] MEDS: MULTIVITAMIN TAB PO SCH (08:16)
[2020-12-09] MEDS: METOPROLOL SUCC 25MG EXT REL TAB PO SCH ×2 (08:16→19:03)
[2020-12-09] MEDS: POTASSIUM CHLORIDE CRTAB 20 MEQ TABCR PO SCH (08:17)
[2020-12-09] MEDS: ASPIRIN 81 MG ECTAB PO SCH ×2 (08:17→19:08)
[2020-12-09] MEDS: PANTOprazole 40 MG TAB PO SCH (08:18)
[2020-12-09] MEDS: GABAPENTIN 300 MG CAP PO SCH (10:29)
--- NOTE | 2020-12-09 11:08 | Hospitalist Progress Note ---
Date of Service December 09, 2020 Assessment & Plan (1) Primary osteoarthritis of left knee: Status post left total knee arthroplasty by Dr. Solis, POD #1 EBL 5 mL; Hemovac in place Pain/wound management per orthopedics Activity, therapy and diet as directed by orthopedics Encourage incentive spirometry wean oxygen as able Monitor hemoglobin- hgb 10.6 today (11.9 preop) Milk leukocytosis of 11.39 likely reactive, preop steroids likely also contributing. Will monitor. Afebrile (2) Chronic diastolic CHF (congestive heart failure): (3) Mild aortic valve stenosis: Last echocardiogram 2019 revealed EF 50 to 55%, grade 1 diastolic dysfunction, mild aortic valve stenosis, mild aortic valve regurgitation Patient with history of nonischemic cardiomyopathy, normal coronaries via cath 2017 Daily weights, strict I's and O's - baseline weight is 238lb at home Continue metoprolol, continue to hold torsemide with elevated Cr. Appears euvolemic on exam today (4) CKD (chronic kidney disease), stage IV: Baseline creatinine 2.4-2.7 - Cr today elevated to 2.86 Preop creatinine 2.4 Continue to avoid nephrotoxic agents, holding torsemide Encouraged gentle PO intake of water today, expect improvement UA pending (5) HTN (hypertension): bp mildly elevated initially, now normotensive continue metoprolol, hold torsemide until volume status reassessed in a.m. (6) Sick sinus syndrome: s/p PPM last interrogation 09/20/20, normal function (7) Acquired hypothyroidism: continue levothyroxine (8) Non-sustained ventricular tachycardia: hx of NSVT, PSVT continue amiodarone, metoprolol pacemaker, AICD in place follows [facility] (9) DVT prophylaxis: ASA BID per ortho Dispo: medical PCP: Dr. German FULL CODE Pt was seen and examined in collaboration with Dr. Tristan. Please see addendum. Thank you for this consultation. We will follow the patient with you during their hospital stay. You can reach a member of the [facility] Hospitalist Team 19/02 via hospitalist role on tiger text. 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 Cr increased to 2.86 today (baseline is 2.5-2.7) Hold home diuretics and monitor Other plans as detailed by Britta Dia PA-C Subjective Seen and examined in 350-1. Feeling well post operatively. Minimal surgical site pain. No pain or paresthesias in lower extremities. Dissipating with PT without issue. No visual changes, lightheadedness, chest pain or palpitations. No shortness of breath. No nausea, vomiting or abdominal pain. Endorses lessened p.o. intake yesterday and perioperative state. Encouraged to drink more fluids today. Gabapentin not on med rec and will reconcile that. Continue to hold torsemide at this time. Review of Systems Review of Systems: At least ten systems reviewed and negative except as noted in the HPI. Physical Exam Physical Exam: General Appearance: WD/WN, vitals as above, NAD, sitting up in bed, pleasant, conversing easily Head: normocephalic, atraumatic Eyes: normal inspection, PERRL, conjunctivae normal, anicteric sclerae ENT: external ear and nose normal, oropharynx normal Neck: normal visual inspection, trachea midline, no thyromegaly Respiratory: normal respiratory effort, lungs clear to auscultation, no wheeze, rales, rhonchi. No accessory muscle use Cardiovascular: regular rate, rhythm, no murmur, normal peripheral pulses, no BLE edema Abdomen/GI: normal bowel sounds, soft, nontender, no hepatosplenomegaly Extremities/Musculoskeletal: + L knee surgical dressing c/d/i. Toes mobile with good dorsiflexion. No cyanosis or clubbing, extremities motor strength 5/5 Neurologic: PERRL, CN's II-XI intact bilaterally and moves all extremities Psychiatric: A+Ox3, euthymic affect Skin: no rashes, normal color, warm/dry Results & Data Results & Data ([facility]) Vital Signs (Past 12 Hours) Vital Signs Temp Pulse Resp BP Pulse Ox 12/09/20 07:02 36.6 C 59 L 15 109/64 93 12/09/20 04:23 37.3 C 62 15 121/70 91 Laboratory Results Short CBC 12/09/20 Range/Units 05:52 WBC 11.39 H (4.8-10.8) K/uL Hgb 10.6 L (14.0-18.0) g/dL Hct 32.8 L (42-52) % Plt Count 180 (130-400) K/uL BMP 12/09/20 05:52 Sodium 141 Potassium 4.0 Chloride 107 Carbon Dioxide 28 BUN 33 H Creatinine 2.86 H Glucose 128 H Calcium 7.2 L Diagnostic Findings Knee X-Ray 12/08/20 13:25 XR knee LT 1 or 2V routine CLINICAL HISTORY: Postoperative evaluation. COMPARISON: None FINDINGS: Alignment of the total left knee arthroplasty is anatomic. There is no periprosthetic fracture or unexpected radiopaque foreign body. There are drains and skin jennifer. IMPRESSION: Expected findings following total left knee arthroplasty. ACT 112: Negative or not required by law. Electronically signed by: Naveed Buitrago M.D. 12/08/2020 1:51 PM
[2020-12-09 15:43] LABS: BUN Creatinine Ratio 13.2 (10-20); Calcium 6.9 mg/dl (8.5-10.1); Est GFR (African American) 22.4 ml/min; Est GFR (Non-African American) 19.4 ml/min; Potassium 4.4 mmol/L (3.5-5.1)
[2020-12-09] MEDS: POLYETHYLENE (MIRALAX) 17 GM PACK PO PRN (19:07)
[2020-12-09] MEDS: TAMSULOSIN HCL 0.4 MG CAP PO SCH (19:08)
[2020-12-09] MEDS: SENNA 8.6 MG TAB PO SCH (19:08)
[2020-12-09] MEDS: ATORVASTATIN 10 MG TAB PO SCH (19:09)
[2020-12-10] MEDS: LEVOTHYROXINE SODIUM 150 MCG TABLET PO SCH (06:18)
[2020-12-10 07:17] LABS: Hematocrit (blood only) 30.2 % (42-52); Hemoglobin 9.8 g/dL (14.0-18.0); Mean Corpuscular Hemoglobin 32.5 pg (25-34); Mean Corpuscular Hgb Conc 32.5 g/dL (32-36); Mean Platelet Volume 9.2 fL (7.4-10.4); Platelet Count 192 K/uL (130-400); RDW Standard Deviation 50.2 fL (36.4-46.3); Red Blood Count 3.02 M/uL (4.7-6.1)
[2020-12-10] MEDS: ACETAMINOPHEN 500 MG TAB PO SCH (07:35)
[2020-12-10] MEDS: GABAPENTIN 300 MG CAP PO SCH (07:35)
[2020-12-10] MEDS: ASPIRIN 81 MG ECTAB PO SCH (07:36)
[2020-12-10] MEDS: AMIODARONE 200 MG TAB PO SCH (07:37)
[2020-12-10] MEDS: POTASSIUM CHLORIDE CRTAB 20 MEQ TABCR PO SCH (07:37)
[2020-12-10] MEDS: DOCUSATE SODIUM 100 MG CAP PO SCH (07:37)
[2020-12-10] MEDS: allopurinoL 100 MG TAB PO SCH (07:38)
[2020-12-10] MEDS: PANTOprazole 40 MG TAB PO SCH (07:38)
[2020-12-10] MEDS: MULTIVITAMIN TAB PO SCH (07:38)
[2020-12-10] MEDS: METOPROLOL SUCC 25MG EXT REL TAB PO SCH (07:39)
[2020-12-10 07:42] LABS: BUN Creatinine Ratio 13.4 (10-20); Calcium 7.3 mg/dl (8.5-10.1); Creatinine Clr Calc Pharmacy 23.5 ml/min; Est GFR (African American) 21.9 ml/min; Est GFR (Non-African American) 18.9 ml/min; Potassium 4.1 mmol/L (3.5-5.1)
[2020-12-10] MEDS: POLYETHYLENE (MIRALAX) 17 GM PACK PO PRN (07:49)
--- NOTE | 2020-12-10 07:54 | Orthopedic Progress Note ---
Date of Service December 10, 2020 Assessment & Plan (1) Primary osteoarthritis of left knee: POD#2 left TKA -PT/OT -Pain management as written -DVT prophylaxis-SCDs, TEDs, ASA 81mg BID -AM labs-hemoglobin at 9.8 drop from 10.6 yesterday. Creatine elevated to 2.9 from 2.45 preop and 2.85 yesterday, hx of CKD -D/c planning home with home health PT upon discharge when stable. Possibly today if okay with medicine Admission and Anticipated Discharge Date Admission Date: December 08, 2020 Subjective Patient resting in bed comfortably. No pain in knee. Feels well. Denies chest pain, sob, dizziness, n/v/d. Review of Systems Review of Systems: All systems reviewed & are unremarkable except as noted in HPI & below Physical Exam Physical Exam: INES to left knee is c/d/i. Hemovac dressing c/d/i. No calf tenderness, toes mobile with good dorsiflexion. Distally n/v status and sensation intact. Constitutional: well developed and well nourished; no acute distress Results & Data ([facility]) Vital Signs (Past 12 Hours) Vital Signs Temp Pulse Resp BP Pulse Ox 12/10/20 06:22 36.9 C 62 16 102/59 L 96 12/09/20 22:25 36.9 C 60 15 122/70 94
--- NOTE | 2020-12-10 09:48 | Hospitalist Progress Note ---
Date of Service December 10, 2020 Assessment & Plan (1) Primary osteoarthritis of left knee: Status post left total knee arthroplasty by Dr. Solis, POD #2 EBL 5 mL Activity, therapy and diet as directed by orthopedics Encourage incentive spirometry wean oxygen as able Hgb 9.8 today (11.9 preop). Maybe acute blood loss + dilutional Pain controlled (2) Chronic diastolic CHF (congestive heart failure): (3) Mild aortic valve stenosis: Last echocardiogram 2019 revealed EF 50 to 55%, grade 1 diastolic dysfunction, mild aortic valve stenosis, mild aortic valve regurgitation Patient with history of nonischemic cardiomyopathy, normal coronaries via cath 2017 Daily weights, strict I's and O's - baseline weight is 238lb at home Continue metoprolol. Appears euvolemic on exam today Diuretics still on hold (4) CKD (chronic kidney disease), stage IV: Baseline creatinine 2.4-2.7 Preop creatinine 2.4 Continue to avoid nephrotoxic agents Cr today elevated to 2.9 Discussed with Primary Attending to consider nephrology recommendations since patient is on a large dose of torsemide per home med to determine if any med adjustment is needed (5) HTN (hypertension): Controlled (6) Sick sinus syndrome: S/p PPM last interrogation 09/20/20, normal function (7) Acquired hypothyroidism: Continue levothyroxine (8) Non-sustained ventricular tachycardia: Hx of NSVT, PSVT Continue amiodarone, metoprolol Pacemaker, AICD in place [facility] (9) DVT prophylaxis: Defer to Primary Surgeon Admission and Anticipated Discharge Date Admission Date: December 08, 2020 Subjective 85-year-old male who has significant past medical history of HTN, HLD, chronic diastolic heart failure, history of nonischemic cardiomyopathy, sick sinus syndrome status post PPM, 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 Pain at surgical site is well controlled. Denies any other complaints Physical Exam Constitutional: + well hydrated and + obese; no acute distress Eyes: PERRL, conjunctivae normal, anicteric sclerae ENMT: external ear and nose normal, oropharynx normal Respiratory: normal respiratory effort, lungs clear to auscultation Cardiovascular: Rate/Rhythm: regular rate and regular rhythm S1 S2 Gastrointestinal (Abdomen): normal bowel sounds, soft, nontender, no hepatosplenomegaly Musculoskeletal: Clean dressing over left knee Neurologic: PERRL, EOMI, accommodation nl, no face palsy, no dysarthria Psychiatric: A+Ox3, euthymic affect Results & Data Results & Data ([facility]) Vital Signs (Past 12 Hours) Vital Signs Temp Pulse Pulse Resp BP Pulse Ox 12/10/20 09:18 36.9 C 63 62 16 102/59 L 96 12/10/20 06:22 36.9 C 62 16 102/59 L 96 12/09/20 22:25 36.9 C 60 15 122/70 94 Laboratory Results Laboratory Results - last 24 hr 12/09/20 12/10/20 12/10/20 15:09 06:46 06:46 WBC 7.80 RBC 3.02 L Hgb 9.8 L Hct 30.2 L MCV 100.0 MCH 32.5 MCHC 32.5 RDW Std Deviation 50.2 H RDW Coeff of Pastor 14.0 Plt Count 192 MPV 9.2 Sodium 138 139 Potassium 4.4 4.1 Chloride 104 103 Carbon Dioxide 31 30 Anion Gap 3.0 6.0 BUN 38 H 39 H Creatinine 2.87 H 2.93 H Est Cr Clr Drug Dosing 24.0 23.5 Est GFR ( Amer) 22.4 21.9 Est GFR (Non-Af Amer) 19.4 18.9 BUN/Creatinine Ratio 13.2 13.4 Glucose 83 89 Calcium 6.9 L 7.3 L
--- NOTE | 2020-12-10 13:33 | XRay Report ---
XR chest 2V PA/lateral CLINICAL HISTORY: Congestive failure. Follow-up study. COMPARISON STUDY: 08/28/2018 FINDINGS: The heart is enlarged. There are trace bilateral pleural effusions. There is a left subclav kwan a cyst/defibrillator. There is no focal pulmonary consolidation. There is no current evidence of pulmonary vascular congestion. Degenerative changes are present within the spine. Arthritic changes a re present within the shoulders. IMPRESSION: 1. Mild cardiomegaly and trace bilateral pleural effusions. ACT 112: Negative or not required by law. Electronically signed by: Avelino Blood M.D. 12/10/2020 1:31 PM
--- NOTE | 2020-12-10 14:45 | Consultation Report ---
DATE OF CONSULTATION: 12/10/2020 NEPHROLOGY CONSULTATION NOTE REASON FOR CONSULT: Acute on chronic renal failure. HISTORY OF PRESENT ILLNESS: An 85-year-old male who was admitted for elective surgery. Two days ago on 12/08, he had left total knee arthroplasty, prepatellar bursectomy and application of a superficial wound VAC. The patient has a known CKD stage IV with baseline creatinine in the mid to high 2s. He takes torsemide 60 mg every day. Since admission, he has been stable. Renal function has been slightly worse than his baseline, but not by much. His last outpatient blood work from 09/07/2020 was creatinine of 2.7 and today he has a creatinine of 2.9. For the last 2 days, he did not get the diuretics. He also received a little bit of IV fluid, but not now. He is not in any respiratory distress. Vital signs are acceptable. PAST MEDICAL AND SURGICAL HISTORY: Includes hypertension, hyperlipidemia, chronic diastolic heart failure, history of nonischemic cardiomyopathy, sick sinus syndrome, status post pacemaker, postsurgical hypothyroidism, papillary thyroid carcinoma, chronic kidney disease stage IV with a most recent outpatient creatinine of 2.7, gout, history of colon cancer. MEDICATIONS: Home medication list was reviewed in detail. Of special interest to nephrology, he is on torsemide 2 tablets in the morning and 1 tablet in the afternoon. ALLERGIES: LIST WAS REVIEWED IN DETAIL AND INCLUDES FELODIPINE, SULINDAC, AND OXYCODONE. FAMILY HISTORY: Negative for renal disease or dialysis. SOCIAL HISTORY: No smoking, no alcohol. He is and lives with his spouse. Retired. REVIEW OF SYSTEMS: He is complaining of some pain and discomfort in his left knee where he had the surgery. Otherwise, denies any acute symptoms. Denies nausea, vomiting, chest pain, shortness of breath, orthopnea, PND, lower extremity edema, major weight change or loss of appetite. PHYSICAL EXAMINATION: GENERAL: Elderly white male who is not in any overt respiratory distress. He is awake, alert, oriented x3. HEENT: Mucous membranes moist. NECK: Supple. No jugular venous distention. CHEST: Bilaterally decreased breath sounds, occasional crackles. CARDIOVASCULAR: S1, S2 regular. ABDOMEN: Soft, nontender, obese. EXTREMITIES: Show trace edema in right and trace to 1+ in the left where he had the surgery done. NEUROLOGIC: Awake, alert, oriented, normal speech, no distress and moving all 4 extremities. VITAL SIGNS: Most recent vital signs include blood pressure 102/59, pulse rate 63, temperature 36.9, 96% on room air. LABORATORY TESTS: Blood work from this morning shows a creatinine of 2.9, BUN of 39, creatinine has been in the 2.8-2.93 range for the last 2 days. Chest x-ray was done just now, which shows bilateral mild pleural effusion, but no overt pulmonary congestion. ASSESSMENT AND PLAN: An 85-year-old male with known chronic kidney disease stage IV with a baseline creatinine around 2.8, now admitted with elective left knee surgery, which he underwent without complication. I was consulted for management of acute on chronic renal failure. Acute on chronic renal failure: The acute component is very, very minimal if any. He is pretty much at his baseline at this point, a slight rise in creatinine given postoperative setting is not unusual. In any case, he is right where his baseline creatinine is or close enough. He will be going home and definitely his diet will not be as restricted and ideal like in the hospital. I would restart the torsemide he was taking at home at the same dose as before. He will need to follow with his primary care next week with a BMP. Also, follow with his set up mechanic automatic line within the next few weeks. He did see his set up mechanic automatic line 2 months ago.
--- NOTE | 2020-12-11 17:47 | Discharge Summary ---
Date of Service December 11, 2020 Admission HPI Per Admitting Provider 85 year old male with PMHx significant for hypothyroidism, CKD3, CHF, HTN, presents with longstanding left knee pain. Has hx of right TKA and has done well. He has failed conservative measures including injections and anti- inflammatories. Pain interfering with his daily activities. He would like to proceed with left knee replacement. Patient denies headaches, sweats, fevers, chills, double vision, blurred vision, cough, sore throat, dysphagia, chest pain, sob, wheezing, n/v/d/c, numbness, tingling, fatigue, urinary symptoms, mood disorders. ROS positive for left knee pain and stiffness. Admission Exam Per Admitting Provider Constitutional: well developed and well nourished; no acute distress Eyes: PERRL, conjunctivae normal, anicteric sclerae ENMT: external ear and nose normal, oropharynx normal Neck: trachea midline, no thyromegaly Respiratory: normal respiratory effort, lungs clear to auscultation Cardiovascular: RRR, no murmur, no edema Musculoskeletal: Left knee: Valgus alignment with mild effusion. Tenderness medial and lateral joint line. ROM 0-110 degrees, crepitation. Stable to valgus and varus stress. Skin: no rashes, warm and dry Neurologic: patellar DTR's 2+ bilat, sensation intact Psychiatric: A+Ox3, euthymic affect Principal Diagnosis Left knee osteoarthritis, CKD Discharge Exam Constitutional well developed and well nourished; no acute distress Eyes PERRL, conjunctivae normal, anicteric sclerae ENMT external ear and nose normal, oropharynx normal Neck trachea midline, no thyromegaly Respiratory normal respiratory effort, lungs clear to auscultation Cardiovascular RRR, no murmur, no edema Skin no rashes, warm and dry Neurologic patellar DTR's 2+ bilat, sensation intact Psychiatric A+Ox3, euthymic affect Discharge Data Allergies Allergy/AdvReac Type Severity Reaction Status Date / Time felodipine Allergy Unknown FEET Verified 12/08/20 07:36 SWELLING sulindac Allergy Unknown Hives Verified 12/08/20 07:36 oxycodone AdvReac Unknown DISORIENTED Verified 12/08/20 07:36 Consultations 12/03/20 16:31 Consult Hospitalist Routine 12/10/20 08:15 Consult Nephrology Routine Procedures Performed Operation Date: 12/08/20 09:20 Actual Procedures p Left Knee Total Knee Arthroplasty, Pre-Patellar Bursectomy(Left) - Sky Solis MD Ordered Studies 12/08/20 05:00 US - OR guided needle placemen Routine Hospital Course (1) Primary osteoarthritis of left knee: Patient presented for same day admission following left total knee arthroplasty on 12/08/20. He tolerated procedure well. Post-operatively, his activity was progressed and well tolerated. They participated in PT with ambulation distance of 120 feet. ROM of operative knee reached 100 degrees. Labs remained stable- lowest hemoglobin recorded: 9.8, however had an increase in his creatinine. He does have history of CKD. Dr. Matt Almodovar of medical service and nephrology was consulted for medical management during admission. Pain controlled on oral medications. Please refer to daily progress notes and PT no janett for complete details. After exam on 12/10/20, patient was felt to be stable for discharge home with home health PT. Patient will f/u in the office in about 2 weeks for further evaluation including x-rays and incision check, sooner if having any issues or concerns. POD#2 left TKA -PT/OT -Pain management as written -DVT prophylaxis-SCDs, TEDs, ASA 81mg BID -AM labs-hemoglobin at 9.8 drop from 10.6 yesterday. Creatine elevated to 2.9 from 2.45 preop and 2.85 yesterday, hx of CKD -D/c planning home with home health PT upon discharge when stable. Possibly today if okay with medicine Total Time Total Time Spent Total Time Spent (In Minutes): 20 Discharge Plan Discharge Items Patient Disposition: Home - Home Health Services Reason For Visit: Unilateral Primary Osteoarthritis Left Knee Discharge Diagnosis: Left knee osteoarthritis Activity: Per Instructions section Non-emergency contact: Surgeon Call non-emergency contact if: you have any medication questions, your pain is worsening, your pain is unusual for you, your pain is concerning for you, you have a fever, your temperature is above 101, your wound has increased redness, your wound has increased drainage and your wound pain has increased Follow-up/Referrals: Bernardo German MD [Primary Care Provider] - Rolo Carlson MD [Physician] - (Please ensure you follow up with Nephrology in 2 weeks. If you do not receive a call for appointment, Please call) Diet: Regular Ambulatory Orders: Basic Metabolic Panel (Routine) Timeframe: [id number] Location: Determined by Patient Ordered By: Michelle Chang Attending Provider Instructions: ACTIVITY RECOMMENDATIONS: SELF CARE INSTRUCTIONS AFTER TOTAL KNEE REPLACEMENT A. You may need to continue a physical therapy program after discharge from the hospital. There are several options available to you. Your doctor will assist you in selecting the best one for you. 1. An out-patient facility 2 to 3 times a week for therapy or home therapy. 2. Continue working on all exercises taught to you in the hospital. Your goals should be to increase bending of your knee to 90 degrees and beyond and to fully straighten your knee. B. You may progress at your own pace from walking with a walker or crutches to a cane; then to no assistive devices. C. Make walking a part of your daily routine. Be up as much as comfortable with rest periods throughout the day. Rest with leg elevation is very important. Use the ice wrap frequently for the first 3-4 weeks. D. There are no restrictions on activities. You may ride in a car, shop, p articipate in supervisor matrix and all social activities. E. Wear the long elastic stockings (ARIAN hose) 20 hours a day for 2 weeks after surgery. They can be removed several times a day for laundering and for a bath. F. You may shower, no tub baths until cleared by your doctor. SPECIAL CARE INSTRUCTIONS: VERY IMPORTANT TO READ AND REVIEW A. There are a few signs you need to watch for after you are home. Call [facility] if you notice any of the followin. Increased severe knee pain. Some pain is expected especially when you exercise. 2. Increased swelling in your leg or knee; pain or swelling of the calf muscle in either lower leg. 3. Any fluid drainage from the incision. 4. Shortness of breath or chest pain. B. Please call [facility] at if you have any concerns or questions about your operation or recovery. The doctor or his nurse will return your call promptly. C. You must take antibiotics before dental work, bladder, bowel or other surgery. Your doctor will provide you with a permanent care to carry describing this precaution. IMPORTANT: * REMEMBER TO TAKE ASPIRIN, 81 MG, TWICE DAILY FOR 4 WEEKS UNLESS OTHERWISE DIRECTED. THIS IS YOUR BLOOD THINNER. * HIGH RISK PATIENTS MAY BE PRESCRIBED A STRONGER BLOOD THINNER. THIS WILL BE PROVIDED AT DISCHARGE. * CALL IF INCREASED PAIN, REDNESS, DRAINAGE OR FEVER GREATER THAT 101. * WEAR ARIAN HOSE 20 HOURS PER DAY FOR 2 WEEKS. This is a large suction dressing covering your incision. This will help pull any excess drainage from the wound and allow your incision to heal properly. You may shower with this if you can keep the unit outside of the shower. If any bleeding or leakage is noted please call your doctor's office. This will remain on your incision for 7 days and then should be removed. This can be done yourself or by the home nursing staff if applicable. The entire unit is disposable once removed. Once removed, keep incision clean and dry. If redness or drainage is noted, please call your surgeon. IF INCISION IS LEAKING THROUGH DRESSING, CALL THE OFFICE . FOLLOW UP VISIT: If appointment is not already scheduled: Please call [facility] to make a follow-up appointment for 2 weeks after your surgery at . You should call your PCP to schedule an appointment for 1 week after your discharge. They would like you to have labs completed prior to this appointment, please contact them for this to check your kidney function. You also need to be seen by your chrome polisher in 2 weeks for reevaluation. Pending Studies at Discharge: No Stand-Alone Forms: My [employer], Smoking Cessation Medications and DC Order Prescriptions: New aspirin 81 mg Tablet,Delayed Release (Dr/Ec) 81 mg PO BID Qty: 60 RF: 0 tramadol 50 mg Tablet 50 - 100 mg PO .Q4h-6h PRN (Reason: pain) Qty: 30 RF: 0 acetaminophen 500 mg Tablet 1,000 mg PO Q8H Qty: 60 RF: 0 Continued levothyroxine 175 mcg tablet 150 mcg PO QAM RF: 0 atorvastatin 10 mg tablet 10 mg PO HS RF: 0 tamsulosin 0.4 mg capsule 0.4 mg PO HS RF: 0 ergocalciferol (vitamin D2) 50,000 unit capsule 50,000 unit PO WK RF: 0 polyethylene glycol 3350 [Miralax] 17 gram/dose Powder 17 g PO HS PRN (Reason: Constipation) RF: 0 calcium carbonate 320 mg calcium (750 mg) Tablet,Chewable 750 mg PO TID PRN (Reason: Dyspepsia) RF: 0 allopurinol 100 mg Tablet 100 mg PO QAM RF: 0 torsemide 20 mg Tablet 20 mg PO DAILY@1500 RF: 0 amiodarone 200 mg tablet 200 mg PO QAM RF: 0 omeprazole 20 mg Capsule,Delayed Release(Dr/Ec) 20 mg PO QAM RF: 0 metoprolol succinate 25 mg Tablet Extended Release 24 Hr 25 mg PO BID RF: 0 potassium chloride 20 mEq Tablet Extended Release 20 meq PO QAM RF: 0 torsemide 20 mg Tablet 40 mg PO QAM RF: 0 Discontinued acetaminophen 500 mg tablet 1,000 mg PO Q8 PRN (Reason: Pain) RF: 0 aspirin [Aspir-81] 81 mg Tablet,Delayed Release (Dr/Ec) 81 mg PO DAILY RF: 0 Discharge Orders: Discharge Order (Routine); Ordered 12/10/20 Ordered By: Jemal Garnett/Other Patient Handouts: Total Knee Replacement Admission Data Admit Date/Time: 12/08/20 13:25 Attending Provider: Sky Solis Admit Provider: Sky Solis Primary Care Provider: Bernardo German Other Providers: Michelle Tristan I. ; [facility],Home Health ; Jozef Nagy Other Interventions: Discharge Summary Assessment (RN) Last Done: 12/10/20 09:18
[2020-12-15] MEDS ORDERED: ERGOCALCIFEROL 50,000 UNITS 1250 MCG CAP PO SCH (09:00)
== END 2020-12-10 15:15 | disposition home health service (06) ==
LOC: 3W 06:54 → ASU 06:54
DX: E78.5 Hyperlipidemia, unspecified; I35.0 Nonrheumatic aortic (valve) stenosis; I47.2 Ventricular tachycardia; N18.30 Chronic kidney disease, stage 3 unspecified; M13.0 Polyarthritis, unspecified; M70.42 Prepatellar bursitis, left knee; I42.9 Cardiomyopathy, unspecified; Z88.5 Allergy status to narcotic agent; Z85.850 Personal history of malignant neoplasm of thyroid; Z95.0 Presence of cardiac pacemaker; M17.12 Unilateral primary osteoarthritis, left knee; Z79.899 Other long term (current) drug therapy; N17.9 Acute kidney failure, unspecified; I50.32 Chronic diastolic (congestive) heart failure